=== PATIENT | female | born 1970 | race Caucasian/White ===

== ENCOUNTER 2020-07-24 04:06 | Outpatient (CLI) | payer OTHER, SELFPAY ==
[2020-07-24 19:05] LABS: SARS-CoV-2 RNA PCR Negative
== END 2020-07-24 04:07 | disposition home or self-care (01) ==
LOC: ANHCOVIDDT 04:06
PROVIDERS: PCP Internal Medicine; Visit Provider Internal Medicine Gastroenterology
DX: Z01.812 Encounter for preprocedural laboratory examination (principal); Z20.828 Contact with and (suspected) exposure to other viral communicable diseases
CPT/HCPCS: 87635; C9803; U0003

== ENCOUNTER 2020-07-26 02:19 | Day surgery (SDC) | payer OTHER, SELFPAY ==
[2020-07-18 15:59] VITALS: BMI 33.3
[2020-07-26 12:37] VITALS: BP 140/79; PULSE 87; RESP 18; TEMP 37.1; O2SAT 99; BMI 34.4
--- NOTE | 2020-07-26 12:48 | WPDANESEPPF ---
Anes - Initial Pre Proc Eval Procedure: Operation Date: 07/26/20 13:45 Proposed Procedures p Esophagogastroduodenoscopy&Screen Colon - Chava Lamb MD Date/Time: 07/26/20 12:48 Surgeon: Chava Lmab MD Pre Op Diagnosis: Epigastric Pain, Neoplasm Screening Patient Data Age: 49 Gender: F Height: 1.55 m Weight: 82.7 kg Last Vital Signs Temp 37.1 C 07/26/20 12:37 Pulse 87 07/26/20 12:37 Resp 18 07/26/20 12:37 BP 140/79 07/26/20 12:37 Pulse Ox 99 07/26/20 12:37 Allergies Allergy/AdvReac Type Severity Reaction Status Date / Time hydrocodone Allergy Severe Itching Verified 07/26/20 12:35 Penicillins AdvReac Intermediate Vomiting Verified 07/26/20 12:35 Home Medications Medication Instructions Recorded Confirmed Type flu vac [id number] 36mos up(PF) mcg IM 06/20/20 History gabapentin 300 mg capsule 300 mg PO DAILY 06/20/20 07/18/20 History meloxicam 15 mg tablet 15 mg PO DAILY PRN 06/20/20 07/18/20 History oxybutynin chloride 5 mg tablet 10 mg PO HS 06/20/20 07/18/20 History peg 3350-electrolytes 236 240 ml PO Q10M #4000 ml 07/05/20 Rx gram-22.74 gram-6.74 gram-5.86 gram solution melatonin 20 mg PO HS 07/18/20 History omeprazole 20 mg PO HS 07/18/20 07/18/20 History Patient hx anesthesia problems: none Family hx anesthesia problems: none PMFSH Past Medical History Medical History (Updated 06/21/20 @ 15:46 by Chava Lamb MD) Alternating constipation and diarrhea Cancer of skin Dyspepsia Family history of colon cancer in mother Nausea Rectal bleeding Surgical History Surgical History History of appendectomy Family History Family History Mother Carcinoma of colon Hypertension Diabetes mellitus Social History Social History Smoking status: Never smoker Alcohol intake: never Substance use: never Substance use type: does not use Living arrangements: with family Spiritual care concerns: No Anes - Eval Final PreProcedure Day of Procedure 07/26/20 12:48 Patient weight: obese Heart: regular rate and rhythm Lungs: clear to auscultation and normal air movement Airway: Mallampati scale class II Neurological: alert and oriented Last oral intake: >/= 8 hours ASA classification: II Emergent: no Anesthetic plan: proceed Anesthesia type and monitoring: general GIVS Informed Consent: The patient's anesthetic plan and its attendant risks and benefits were discussed with the patient/family/POA. Questions were solicited and answers provided to the satisfaction of the patient/family/POA.
[2020-07-26] MEDS: LACTATED RINGERS 1,000 ML 150 ML IV CONT (12:50)
--- NOTE | 2020-07-26 13:58 | PM.HPGS ---
History of Present Illness History of Present Illness Consent: Risks, benefits, and alternatives have been discussed and questions answered. Patient agrees to proceed with procedure. Chief complaint: Epigastric Pain, Neoplasm Screening Narrative: Kelsi Dugan is a 49 year old female with change bowel habits, nausea after cholecystectomy few years ago. Review of Systems Constitutional: Constitutional: Denies headache(s) and Denies weakness Eyes: Eyes: Denies blurry vision ENT: Reports Normal hearing present, Denies headache(s) and Denies neck pain Cardiovascular: Cardiovascular: Denies chest pain and Denies dyspnea Respiratory: Respiratory: Denies dyspnea Gastrointestinal: Gastrointestinal: Reports no additional gastrointestinal complaints Genitourinary: Genitourinary: Denies dysuria Musculoskeletal: Musculoskeletal: Denies neck pain Integumentary/Breasts: Skin/Breast: Denies dry skin Neurologic: Reports Normal hearing present, Denies headache(s) and Denies weakness Psychiatric: Psychiatric: Denies anxiety Endocrine: Endocrine: Denies change in body appearance Hematologic/Lymphatic: Hematologic/Lymphatic: Denies easy bleeding Allergic/Immunologic: Allergic/Immunologic: Denies urticaria PMF Past Medical History Medical History (Updated 06/21/20 @ 15:46 by Chava Lamb MD) Alternating constipation and diarrhea Cancer of skin Dyspepsia Family history of colon cancer in mother Nausea Rectal bleeding Surgical History Surgical History History of appendectomy Family History Family History Mother Carcinoma of colon Hypertension Diabetes mellitus Social History Social History Smoking status: Never smoker Alcohol intake: never Substance use: never Substance use type: does not use Living arrangements: with family Spiritual care concerns: No Meds Home Medications and Allergies Home Medications Medication Instructions Recorded Confirmed Type flu vac [id number] 36mos up(PF) mcg IM 06/20/20 History gabapentin 300 mg capsule 300 mg PO DAILY 06/20/20 07/18/20 History meloxicam 15 mg tablet 15 mg PO DAILY PRN 06/20/20 07/18/20 History oxybutynin chloride 5 mg tablet 10 mg PO HS 06/20/20 07/18/20 History peg 3350-electrolytes 236 240 ml PO Q10M #4000 ml 07/05/20 Rx gram-22.74 gram-6.74 gram-5.86 gram solution melatonin 20 mg PO HS 07/18/20 History omeprazole 20 mg PO HS 07/18/20 07/18/20 History Allergies Allergy/AdvReac Type Severity Reaction Status Date / Time hydrocodone Allergy Severe Itching Verified 07/26/20 12:35 Penicillins AdvReac Intermediate Vomiting Verified 07/26/20 12:35 Vital Signs Vital Signs - 24 hr 07/26/20 12:37 Temperature 98.7 F Pulse Rate 87 Respiratory Rate 18 Blood Pressure 140/79 Pulse Oximetry 99 Exam Const: General: comfortable and no acute distress HENMT: General nose exam: Normal nares present Eyes: General: appearance normal, both eyes and all related structures Neck: Neck: no JVD Resp: Auscultation: clear to auscultation bilaterally Cardio: Rate: regular rate Rhythm: regular rhythm GI: Inspection: non-distended GI Palp: Yes Soft to palpation Skin: General skin exam: normal color Neuro: General: gait normal Speech: normal speech Extrem: General: normal to inspection Psych: Mental Status: mental status grossly normal Assessment and Plan Assessment and plan (1) Rectal bleeding: Code(s): K62.5 - Hemorrhage of anus and rectum Status: Acute Assessment and Plan: will proceed with colonoscopy (2) Nausea: Code(s): R11.0 - Nausea Status: Acute Assessment and Plan: egd with bx
[2020-07-26 14:36] VITALS: BP 85/48; PULSE 81; RESP 17; O2SAT 93
[2020-07-26 14:46] VITALS: BP 99/51; PULSE 84; RESP 15; O2SAT 100
[2020-07-26 14:56] VITALS: BP 118/66; PULSE 82; RESP 18; O2SAT 100
[2020-07-26 15:06] VITALS: BP 106/56; PULSE 77; RESP 22; O2SAT 97
[2020-07-26 15:11] VITALS: BP 111/60; PULSE 71; RESP 18; O2SAT 98
== END 2020-07-26 15:24 | disposition home or self-care (01) ==
PROVIDERS: PCP Internal Medicine; Visit Provider Internal Medicine Gastroenterology
PROC: 0DJ08ZZ Inspection of Upper Intestinal Tract, Via Natural or Artificial Opening Endoscopic (ICD-10-PCS; CPT 43235; principal; 2020-07-26 13:45)
DX: R19.4 Change in bowel habit (principal); K62.5 Hemorrhage of anus and rectum; K29.50 Unspecified chronic gastritis without bleeding; K57.30 Diverticulosis of large intestine without perforation or abscess without bleeding; K64.8 Other hemorrhoids; Z80.0 Family history of malignant neoplasm of digestive organs; Z90.49 Acquired absence of other specified parts of digestive tract
CPT/HCPCS: 45380; 43239; 88305; J2704; J7120

== ENCOUNTER 2023-11-24 00:33 | Day surgery (SDC) | payer OTHER, SELFPAY ==
--- NOTE | 2023-11-23 13:57 | PC.NURSE ---
Report to the Outpatient Waiting Room, entrance under the green pavilion located off [facility], at time _0830_ on date __11/24/22_. Planned Procedure Time: _1030_. Time changes happen often and if your time is changed the preop area will call you the afternoon before. - You and your visitor will be asked to self-screen and do not enter if you have any COVID symptoms. - A mask is optional within the hospital at this time. Patients may have clear liquids (water, carbonated beverages, clear teas, apple juice) until 3 hours prior to surgery with a maximum of 20 ounces. - No food from midnight until time of surgery, including gum, mints and candies - Infants may have breast milk until 4 hours before surgery, formula 6 hours prior to surgery. - Children will be allowed to drink immediately following surgery. If applicable, please bring a bottle or sippy cup to assist with drinking. Juice, water, soda, and popsicles are readily available. For infants on formula, please bring formula the day of surgery. Pacifiers are allowed. Take the following medications with a SIP of water the morning of surgery: GABAPENTIN DO NOT STOP ANY OF YOUR OTHER PRESCRIPTION MEDICATIONS PRIOR TO SURGERY ?EXCEPT THE FOLLOWING Medications to discontinue per physician NONE Date to take last dose Please no make-up, nail costa rican, hairspray, perfume, deodorant, or body powder the day of surgery. No jewelry (including any body piercings) or valuables the day of surgery, leave them at home. Please take a shower or bath the night before, or the morning of, surgery with an antibacterial soap. Wear comfortable, loose fitting clothing. Children are encouraged to wear pajamas. - Jewelry must be removed prior to entering the operating room. Rings and piercings that are not removed may be cut off. - The hospital will not accept responsibility for valuables. - Please leave all valuables, including medications, at home the day of surgery. If you are going home after surgery, a licensed bulk delivery driver must drive you home. - NO public transportation without another adult if you receive anesthesia. - We recommend that an adult stay with you for 24 hours following discharge. - We also recommend that you do not drive, make important decision, drink alcoholic beverages, or take any drugs that were not prescribed by your health care provider for at least 24 hours after your discharge time. For Pediatric surgeries, we recommend two adults accompany the child home. Follow any additional instructions given to you from your surgeon. If you or anyone in your household have experienced Covid symptoms in the past week, please notify your surgeon or the nurse liaison at the phone number below for possible testing. Telephone instructions given to _PATIENT_and asked if any additional questions and then verbalized understanding. Patient advised to call surgeon office or pre surgery nurse liaison [phone] if any additional questions.
[2023-11-23 14:06] VITALS: BMI 34.9
[2023-11-24] VITALS (13 sets, daily range): BP systolic 91–138; BP diastolic 49–95; PULSE 57–87; RESP 10–20; TEMP 36.2–36.4; O2SAT 65–100
--- NOTE | ~2023-11-24 | US_ITS ---
EXAMINATION: US venous doppler [facility] DATE: 11/24/2023 15:00 INDICATION: Bilateral lower limb pain TECHNIQUE: Power scale images without and with compression and Doppler images of the bilateral lower e xtremity veins were obtained. COMPARISON: None FINDINGS: The right common femoral vein, profunda femoral vein, femoral vein, popliteal vein, peroneal trunk, p osterior tibial veins, and greater saphenous vein are patent. The left common femoral vein, profunda femoral vein, femoral vein, popliteal vein, peroneal trunk, po sterior tibial veins, and greater saphenous vein are patent. IMPRESSION: 1. Patent bilateral lower extremity veins. No evidence of deep venous thrombosis. Reviewed, dictated and finalized at location B. ENGER AGENT IMPRESSION: 1. Patent bilateral lower extremity veins. No evidence of deep venous thrombosi s.
--- NOTE | 2023-11-24 07:11 | WPDHPUPDATE1 ---
History and Physical Update Update Date/Time: 11/24/23 07:11 History and Physical has been reviewed, including an updated exam of the patient. There are NO changes in the patient's condition. Risks, benefits, and alternatives have been discussed and questions answered. Patient agrees to proceed with procedure.
--- NOTE | 2023-11-24 09:15 | P.PNAN_ITS ---
Anes - Initial Pre Proc Eval Procedure: Operation Date: 11/24/23 10:30 Proposed Procedures p Excision of Draining Left Abdominal Wound with Removal Foreign Material - Yusef Sorenson MD Date/Time: 11/24/23 09:15 Surgeon: Yusef Sorenson MD Pre Op Diagnosis: left open abdominal wound Patient Data Age: 52 Gender: F Height: 1.55 m Weight: 84 kg Last Vital Signs Temp 36.4 C 11/24/23 08:45 Pulse 79 11/24/23 08:45 Resp 18 11/24/23 08:45 BP 138/77 11/24/23 08:45 Pulse Ox 98 11/24/23 08:45 O2 Del Method Room Air 11/24/23 08:45 Allergies Allergy/AdvReac Type Severity Reaction Status Date / Time hydrocodone Allergy Severe Itching Verified 11/24/23 08:35 Penicillins AdvReac Intermediate Vomiting Verified 11/24/23 08:35 Home Medications Medication Instructions Recorded Confirmed Type gabapentin 300 mg capsule 300 mg PO DAILY 06/20/20 11/24/23 History oxybutynin chloride 5 mg tablet 10 mg PO HS 06/20/20 11/24/23 History melatonin 10 mg tablet 20 mg PO HS 07/18/20 11/24/23 History omeprazole 20 mg capsule,delayed 20 mg PO HS 07/18/20 11/24/23 History release Patient hx anesthesia problems: post op nausea/vomiting Family hx anesthesia problems: none Results Review: All pre-operative results and documents have been reviewed as part of the pre- operative evaluation. [facility] Past Medical History Medical History Alternating constipation and diarrhea Cancer of skin Dyspepsia Family history of colon cancer in mother Nausea Rectal bleeding Surgical History Surgical History History of appendectomy Family History Family History Mother Carcinoma of colon Hypertension Diabetes mellitus Social History Social History Smoking status: Never smoker Alcohol intake: never Substance use: never Substance use type: does not use Living arrangements: alone Spiritual care concerns: No Anes - Eval Final PreProcedure Day of Procedure 11/24/23 09:15 Patient weight: obese Heart: regular rate and rhythm Lungs: clear to auscultation Airway: Mallampati scale class II Neurological: alert and oriented Last oral intake: >/= 8 hours ASA classification: II Emergent: no Anesthetic plan: proceed Anesthesia type and monitoring: general LMA and standard monitoring Results Review: All pre-operative results and documents have been reviewed as part of the pre- operative evaluation. Informed Consent: The patient's anesthetic plan and its attendant risks and benefits were discussed with the patient/family/POA. Questions were solicited and answers provided to the satisfaction of the patient/family/POA.
[2023-11-24] MEDS: LACTATED RINGERS 1,000 ML 30 ML IV CONT (09:17)
[2023-11-24] MEDS: SCOPOLAMINE 1 MG PATCH 1 PATCH TRANSDERM (09:19)
[2023-11-24] MEDS: LIDO 1%/EPINEPHRINE 1:100,000 50 ML VIAL 10 ML INFILTRATE (10:33)
--- NOTE | 2023-11-24 10:43 | SUR.OPER ---
Routine cultures, aerobic, anaerobic and gram stain sent with EBONY Posada and received in pathology by Marleni
[2023-11-24] MEDS: BACITRACIN OINTMENT 15 GM TUBE 1 APPLIC TOPICAL (11:06)
[2023-11-24] MEDS: fentaNYL CITRATE INJ (*CRX) 100 MCG/2 ML VIAL 25 MCG IV PUSH ×4 (11:38→11:51)
--- NOTE | 2023-11-24 11:41 | P.OP_ITS ---
Procedure Note - Detailed Date of Procedure 11/24/23 Pre-op Diagnosis left open abdominal wound Post-op Diagnosis Other (chronic draining lower abdominal wound.) Procedure Performed 12 cm excision of chronic left lower abdominal wound with 16 cm complex repair. Surgeon Yusef Sorenson MD Multi Site Leasing Consultant navjot Anesthesia General Indications two year inflamed abdominal scar wound. Findings Small areas of chronically inflamed subcutaneous fat. No foreign material. Description of Procedure The area of concern was marked on the patient's abdomen with her consent in the holding area. 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 There was not adjacent tenderness along the upper margin of this wound. She was taken to the operating room where she was placed supine the operating table. She was given general anesthesia. The abdomen was prepped and draped usual fashion. A time-out was held and confirmed. The site was carefully examined we were not able to express any fluid from this wound. There was less erythema today than yesterday. She has been on 2 days of oral Bactrim. She confirmed today that she has not been using Neosporin on this wound The margins of the wound were infiltrated with 1% lidocaine with epinephrine. With a 15 blade the scarred area was excised this tissue was not sent for pathology. We examined the piece by splitting it down the middle and examining the scar hoping to find retained foreign material and did not locate any. I did not see granulation tissue within the scar. The scar was thick and white. There was no friability in this tissue. Examining the subcutaneous fat and the same area on the trunk I did find a couple of areas that appeared to show small areas self chronic granulation. We took those out and cultured down but did not send them to pathology either. The underlying fat appeared to be normal with exception of scarring or weakness of the superficial fascia as would be expected. I did incise in the same area through the subcutaneous fat but not as far as the deep fascia. This was in the hope of uncovering a source of this chronic inflammation. I did not see anything that might be a deeper inflammatory source. We proceeded to close this wound with 3-0 Monocryl sutures to approximate the superficial fascia. Interrupted 3-0 Monocryl was placed in the dermis as well and the skin was closed with a running 5 0 nylon. Excised skin in this area was approximately 1-1/2 cm vertically and 12 cm in length. Estimated Blood Loss 15 Drains No Packing No Pathology Yes (culture for aerobes and anaerobes.) Complications No immediate complications Condition Stable Disposition PACU
[2023-11-24] MEDS: oxyCODONE HCL (*CRX) 5 MG TAB IR PO (12:23)
--- NOTE | 2023-11-24 13:21 | SUR.PHASEII ---
1300 - dr. madsen called and aware of pt's c/o significant phylicia calf pain. heriberto hose off and will monitor 1320 - dr. madsen called and informed of pt's c/o continued pain to phylicia calves. order received.
--- NOTE | 2023-11-24 13:48 | SUR.PHASEII ---
1340 - ultrasound at bedside
--- NOTE | 2023-11-24 15:23 | SUR.PHASEII ---
1515 - venous doppler results noted. dr. madsen's office called. pt to be discharged home
== END 2023-11-24 15:29 | disposition home or self-care (01) ==
PROVIDERS: PCP Internal Medicine; Visit Provider Plastic Surgery
PROC: (CPT 11406; principal; 2023-11-24 10:30)
DX: S31.104A Unspecified open wound of abdominal wall, left lower quadrant without penetration into peritoneal cavity, initial encounter (principal); T81.89XA Other complications of procedures, not elsewhere classified, initial encounter; M79.662 Pain in left lower leg; M79.661 Pain in right lower leg
CPT/HCPCS: 11406; 13101; 13102 ×2; 87070; 87075; 87181; 87205; 93970; A9270; J0330; J2250; J2405; J2704; J3010; J7120

== ENCOUNTER 2025-01-09 00:11 | Day surgery (SDC) | payer OTHER, SELFPAY ==
[2025-01-05 13:20] VITALS: BMI 29.2
--- OUTSIDE RECORDS SUMMARY | 2025-01-09 00:14 | XMS_ITS | Clinical Summary ---
Author Organization [facility] Address [address] [place] [address] Care Team Providers Care Stock Dealer Name Role Phone Dahlia Jiménez MD Primary Care Provider [phone] Allergies Active Allergy Reactions Criticality Noted Date Comments Hydrocodone Itching 10/26/2018 Penicillin V Vomiting 08/31/2017 Medications oxybutynin 5 MG tablet 2 (two) times daily. 08/23/2017 Active doxylamine (UNISOM) 25 MG tablet Take 25 mg by mouth nightly as needed for Sleep. Active omeprazole 20 MG capsule Take 20 mg by mouth daily. Active gabapentin 300 MG capsule Take by mouth 3 (three) times a day. Active Active Problems Problem Noted Date Diagnosed Date Chronic low back pain withou t sciatica, unspecified back pain laterality 08/30/2018 Other intervertebral disc degeneration, lumbar r egion 08/30/2018 Lumbar disc herniation 08/30/2018 Spinal stenosis of lumbar re gion, unspecified whether neurogenic claudication present 08/30/2018 Lumbar foraminal stenosis 08/30/2018 Lumbar facet arthropathy 03/22/2018 Lumbar radiculopathy 09/24/2017 Family History Medical History Relation Comments Cancer Mother Relation Status Comments Mother Social History Tobacco Use Types Packs/Day Years Used Date Smoking Tobacco: Never Smokeless Tobacco: Never Alcohol Use Standard Drinks/Week Comments No 0 (1 standard drink = 0.6 oz pur e alcohol) Comments No Sex and Gender Information Value Date Recorded Sex Assigned at Not on file Legal Sex Female 1:58 PM CDT Gender Identity Not on file Sexual Orientation Not on file Occupation Industry Job Start Date Job End Date Not on file Not on file Not on file Not on file Last Filed Vital Signs Vital Sign Reading Time Taken Comments Blood Pressure 120/80 11/21/2018 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 Pulse 68 11/21/2018 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 Temperature 36.8 C (98.3 F) 04/05/2018 1:43 PM CDT Respiratory Rate 18 10/26/2018 8:17 AM MATHEMATICS PROFESSOR Oxygen Saturation 93% 10/26/2018 8:17 AM MATHEMATICS PROFESSOR Inhaled Oxygen Concentration - - Weight 73.9 kg (163 lb) 11/21/2018 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 Height 154.9 cm (5' 1 ) 11/21/2018 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 Body Mass Index 30.8 11/21/2018 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 Plan of Treatment Health Maintenance Due Date Last Done Comments Cervical Cancer Screening Pa p Smear (Age 30 to 64) Every 3 Years 1968 Colorectal Cancer Screening Colonoscopy (10 Years) 1968 Annual Physical 12/25/1971 Hepatitis C 1986 Hepatitis B Vaccines (1 of 3 - 19+ 3-dose series) 12/25/1987 Cervical Cancer Screening Pa p with HPV Testing (Age 30 to 64) Every 5 Years 1998 Cervical Cancer Screening with HPV 1998 Mammogram Screening 2008 Zoster Vaccines (1 of 2) 2018 COVID-19 Vaccine ( - 2023-2 5 season) 2024 DTaP, Tdap and Td Vaccines ( 2 - Td or Tdap) 02/22/2028 02/21/2018 Meningococcal B Vaccine Aged Out No l onger eligible based on patient's age to complete this topic Meningococcal Vaccine Aged Out No hialry hector eligible based on patient's age to complete this topic Pneumococcal Vaccine: Pediat rics (0 to 5 Years) and At-Risk Patients (6 to 64 Years) Aged Out No longer eligi ble based on patient's age to complete this topic RSV Immunizations Under 20 Months Aged Out No longer eligible based on patient's age to complete this topic Insurance [place] Care Teams Stock Dealer Relationship Specialty Start Date End Date Dahlia Jiménez MD [address] [place] [address] PCP - General INTERNAL MEDICINE 08/31/17
--- OUTSIDE RECORDS SUMMARY | 2025-01-09 00:14 | XMS_ITS | Data Portability ---
Author Organization [facility] Denis Arnett Address [address] [place] [address] Care Team Providers Care Barge Captain Name Role Phone IZABEL VELAZQUEZ Cage Shift Manager JOSEFA MEHTA Primary Care Provider Assessment Encounter Date Assessment Date Assessment LastModified by Organization Details LastModified Time 06/30/2024 06/30/2024 b/l medial heel sutures removed without incidence [email or web address] Not available 06/30/2024 15:05:34 07/18/2024 07/18/2024 Pepcid. Blood wo rk. GI consult she may need upper endoscopy CT scan abdomen and pelvis with contrast follow up in 1 month . We will try to track down colonoscopy report if we can not we will order colonoscopy. Omeprazole did not help try Protonix 40 mg q.a.m. Pepcid 20 mg q.p.m. consider sucralfate [email or web address] Not available 07/18/2024 23:12:56 09/07/2024 09/07/2024 Familial hypercholesterolemia Statin intolerance Dyspnea on exertion Chest pain Plan: Given intolerance to multiple classes of statins, we discussed options and after shared decision-making we will initiate Repatha pending insurance approval. She will obtain a CMP and lipid panel 4 weeks after taking her 1st dose of Repatha. Patient has recently undergone an echocardiogram at [facility] and we will request records of the same. Due to her inability to exercise on the treadmill following her orthopedic limitations with knee pain and bilateral foot surgery, reviewed options of evaluation for CAD with pharmacologic stress testing versus coronary CTA. After shared decision-making we will obtain coronary CT angiography to assess for obstructive CAD accounting for symptoms and quantify coronary calcium score as a risk stratification tool. ER precautions in case of recurrence of symptoms discussed. We will request a routine follow-up in 2 months' time with the results of the above-mentioned cardiac testing. Thank you for involving us in the care of your patient. [email or web address] Not available 09/07/2024 16:09:09 10/24/2024 10/24/2024 nausea constipat ion abdominal pain weight loss severe dyslipidemia still working with GI she is also seeing her manager money for chronic foot pain and getting pain medications from that clinician. I will see her back in 4 months we will continue current therapy for now. Consider CT chest abdomen pelvis we will try to get that ordered and [email or web address] Not available 10/29/2024 18:27:56 Plan of Treatment Reminders Order Date Submit Date Provider Last Modified By Organization Details Last Modified Time Details Appointments ANY 15 2024 03:15P Arnulfo Mehta MD Not available Not available Not available Lab lipid panel, serum 2023 025 [facility] (Lab), [address] [place], [address], 10/05/2024 10:18:40 CMP, serum or plasma 2023 025 SELINA Gonzalez, [address], [place], [address], 10/05/2024 03:05:22 urinalysi s, dipstick, reflex micro 2023 024 SELINA Gonzalez, [address], [place], [address], 07/19/2024 10:15:47 CBC w/ auto diff 2023 024 SELINA Gonzalez, [address], [place], [address], 07/19/2024 10:15:53 CMP, serum or plasma 2023 024 SELINA Gonzalez, [address], [place], [address], 07/19/2024 10:15:51 lipid panel, serum 2023 [facility], [address], [place], [address], 07/19/2024 10:15:50 Referral gastroent erologist referral - Please call pt to schedule an office visit. 2023 bo darby MD, [address], [address], [place], [address], 07/24/2024 15:06:13 physical therapist referral 2023 [facility], [address] [place], [address], 06/30/2024 16:19:34 Procedures None recorded. Surgeries None recorded. Imaging CT, angiogram , coronary arteries, w/ contrast 2023 [facility], [address] [place], [address], 12/12/2024 10:43:31 CT, abdomen + pelvis, w/ contrast 2023 024 [facility] ([facility]), [address] [place], [address], 10/24/2024 16:16:06 Medication Orders Repatha SureClick 140 mg/mL subcutane ous pen injector 2023 024 [facility], [address] [place], [address], 09/07/2024 16:01:30 Bactrim DS 800 mg-160 mg tablet 2023 024 [facility], [address] [place], [address], 07/18/2024 15:51:49 Percocet 5 mg-325 mg tablet 2023 024 [facility], [address] [place] [address], [address], 07/02/2024 08:34:03 Percocet 5 mg-325 mg tablet 2023 024 [facility] [address] [place] [address], [address], 06/22/2024 16:47:44 Patient TargetsNo targets recorded. Patient Instructions Encounter Date Encounter Id Patient Instructions Last Modified By Organization Details Last Modified Time 06/22/2024 [id number] toenail fungus: care instructions arry Not available 07/02/2024 08:27:18 athlete's foot: care instructions fharry Not available 07/02/2024 08:27:18 acute pain after surgery: care instructions [email or web address] Not available 06/22/2024 16:47:36 06/30/2024 [id number] toenail fungus: care instructions fharry Not available 07/02/2024 08:32:58 plantar fasciitis: care instructions fharry Not available 06/30/2024 15:05:02 acute pain after surgery: care instructions fharry Not available 07/02/2024 08:32:58 07/18/2024 [id number] A healthy lifestyle: care instructions [email or web address] Not available 07/18/2024 20:51:37 10/24/2024 [id number] A healthy lifestyle: care instructions [email or web address] Not available 10/24/2024 21:15:03 Reason for Referral Physical Therapist Referral for Plantar fascial fibromatosis Referring Physician: [facility], Encounter Date: 06/30/2024 Conveyor Installer Referral for Abnormal weight loss Please call pt to schedule an office visit. Referring Physician: Josefa Mehta, Internal Medicine, Encounter Date: 07/18/2024 Results Created Date Observation Date Name Description Value Unit Range Abnormal Flag Note LastModifiedBy Organization Detail LastModifiedTime 07/18/2007/19/2024 MICRO SCOPI C EXAMI NATIO N WBC 6-10 /hpf 0-5 abnormal Not Available [facility] ([facility]) [address] [facility], [place], [address], 07/19/2024 10:15:46 07/18/20 24 07/19/2024 MICRO SCOPI C EXAMI NATIO N RBC 0-2 /hpf 0-2 Not Available [facility] ([facility]) [address] [facility], [place], [address], 07/19/2024 10:15:46 07/18/2007/19/2024 MICRO SCOPI C EXAMI NATIO N epithelial cells (non renal) 0-10 /hpf 0-10 Not Available [facility] ([facility]) [address] [facility], [place], [address], 07/19/2024 10:15:46 07/18/2007/19/2024 MICRO SCOPI C EXAMI NATIO N casts None seen /lpf nonese en Not Available [facility] ([facility]) [address] [facility], [place], [address], 07/19/2024 10:15:46 07/18/20 24 07/19/2024 MICRO SCOPI C EXAMI NATIO N bacteria Modera te nonese en/few abnormal Not Available [facility] ([facility]) [address] [facility], [place], [address], 07/19/2024 10:15:46 07/18/2007/19/2024 URINA LYSIS , ROUTI NE W/RFX specific gravity 1.018 1.005- 1.030 Not Available [facility] ([facility]) [address] [facility], [place], [address], 07/19/2024 10:15:47 07/18/2007/19/2024 URINA LYSIS , ROUTI NE W/RFX pH 5.5 5.0-7. 5 Not Available [facility] ([facility]) [address] [facility], [place], [address], 07/19/2024 10:15:47 07/18/2007/19/2024 URINA LYSIS , ROUTI NE W/RFX urine-color YELLOW yellow Not Available [facility] ([facility]) [address] [facility], [place], [address], 07/19/2024 10:15:47 07/18/2007/19/2024 URINA LYSIS , ROUTI NE W/RFX appearance CLEAR clear Not Available [facility] ([facility]) [address] [facility], [place], [address], 07/19/2024 10:15:47 07/18/2007/19/2024 URINA LYSIS , ROUTI NE W/RFX WBC esterase 2+ negati ve abnormal Not Available [facility] ([facility]) [address] [facility], [place], [address], 07/19/2024 10:15:47 07/18/2007/19/2024 URINA LYSIS , ROUTI NE W/RFX protein NEGATI VE negati ve/tra ce Not Available [facility] ([facility]) [address] [facility], [place], [address], 07/19/2024 10:15:47 07/18/2007/19/2024 URINA LYSIS , ROUTI NE W/RFX glucose NEGATI VE negati ve Not Available [facility] ([facility]) [address] [facility], [place], [address], 07/19/2024 10:15:47 07/18/2007/19/2024 URINA LYSIS , ROUTI NE W/RFX ketones NEGATI VE negati ve Not Available [facility] ([facility]) [address] [place], [address], 07/19/2024 10:15:47 07/18/2007/19/2024 URINA LYSIS , ROUTI NE W/RFX occult blood NEGATI VE negati ve Not Available [facility] ([facility]) [address] [facility], [place], [address], 07/19/2024 10:15:47 07/18/2007/19/2024 URINA LYSIS , ROUTI NE W/RFX bilirubin NEGATI VE negati ve Not Available [facility] ([facility]) [address] [facility], [place], [address], 07/19/2024 10:15:47 07/18/2007/19/2024 URINA LYSIS , ROUTI NE W/RFX urobilinogen ,semi-qn 0.2 mg/dL 0.2-1. 0 Not Available [facility] ([facility]) [address] [place], [address], 07/19/2024 10:15:47 07/18/2007/19/2024 URINA LYSIS , ROUTI NE W/RFX nitrite, urine NEGATI VE negati ve Not Available [facility] ([facility]) [address] [place], [address], 07/19/2024 10:15:47 07/18/2007/19/2024 URINA LYSIS , ROUTI NE W/RFX microscopic examination SEE BELOW: Micro scopi c was indic ated and was perfo rmed. Not Available [facility] ([facility]) [address] [place], [address], 07/19/2024 10:15:47 07/18/2007/19/2024 LIPID PANEL cholesterol, total 302 mg/dL 100-19 9 above high normal Not Available [facility] ([facility]) [address] [place], [address], 07/19/2024 10:15:50 07/18/2007/19/2024 LIPID PANEL triglyceride s 146 mg/dL 0-149 Not Available [facility] ([facility]) [address] [place], [address], 07/19/2024 10:15:50 07/18/20 24 07/19/2024 LIPID PANEL HDL cholesterol 48 mg/dL >39 Not Available [facility] ([facility]) [address] [place], [address], 07/19/2024 10:15:50 07/18/20 24 07/19/2024 LIPID PANEL VLDL cholesterol derek 27 mg/dL 5-40 Not Available [facility] ([facility]) [address] [place], [address], 07/19/2024 10:15:50 07/18/20 24 07/19/2024 LIPID PANEL LDL chol calc ([facility]) 227 mg/dL 0-99 above high normal Not Available [facility] ([facility]) [address] [place], [address], 07/19/2024 10:15:50 07/18/2007/19/2024 LIPID PANEL LDL calc comment: COMMEN T Consi dana evalu ating for Famil ial Hyper jose stero lemia (FH), if clini eugenio indic ated. Not Available [facility] ([facility]) [address] [place], [address], 07/19/2024 10:15:50 07/18/20 24 07/19/2024 COMP. METAB OLIC PANEL (14) glucose 88 mg/dL 70-99 Not Available [facility] ([facility]) [address] [place], [address], 07/19/2024 10:15:51 07/18/20 24 07/19/2024 COMP. METAB OLIC PANEL (14) BUN 11 mg/dL 6-24 Not Available [facility] ([facility]) [address] [place], [address], 07/19/2024 10:15:51 07/18/20 24 07/19/2024 COMP. METAB OLIC PANEL (14) creatinine 1.02 mg/dL 0.57-1 .00 above high normal Not Available [facility] ([facility]) [address] [facility], [place], [address], 07/19/2024 10:15:51 07/18/2007/19/2024 COMP. METAB OLIC PANEL (14) eGFR 65 mL/mi n/1.7 3 >59 Not Available [facility] ([facility]) [address] [facility], [place], [address], 07/19/2024 10:15:51 07/18/2007/19/2024 COMP. METAB OLIC PANEL (14) BUN/creatini ne ratio 11 9-23 Not Available [facility] ([facility]) [address] [facility], [place], [address], 07/19/2024 10:15:51 07/18/20 24 07/19/2024 COMP. METAB OLIC PANEL (14) sodium 141 mmol/ L 134-14 4 Not Available [facility] ([facility]) [address] [facility], [place], [address], 07/19/2024 10:15:51 07/18/2007/19/2024 COMP. METAB OLIC PANEL (14) potassium 4.4 mmol/ L 3.5-5. 2 Not Available [facility] ([facility]) [address] [place], [address], 07/19/2024 10:15:51 07/18/2007/19/2024 COMP. METAB OLIC PANEL (14) chloride 100 mmol/ L 96-106 Not Available [facility] ([facility]) [address] [place], [address], 07/19/2024 10:15:51 07/18/20 07/19/2024 COMP. METAB OLIC PANEL (14) carbon dioxide, total 26 mmol/ L 20-29 Not Available [facility] ([facility]) [address] [facility], [place], [address], 07/19/2024 10:15:51 07/18/20 24 07/19/2024 COMP. METAB OLIC PANEL (14) calcium 9.4 mg/dL 8.7-10 .2 Not Available [facility] ([facility]) [address] [facility], [place], [address], 07/19/2024 10:15:51 07/18/2007/19/2024 COMP. METAB OLIC PANEL (14) protein, total 7.2 g/dL 6.0-8. 5 Not Available [facility] ([facility]) [address] [facility], [place], [address], 07/19/2024 10:15:51 07/18/20 24 07/19/2024 COMP. METAB OLIC PANEL (14) albumin 4.3 g/dL 3.8-4. 9 Not Available [facility] ([facility]) [address] [facility], [place], [address], 07/19/2024 10:15:51 07/18/20 24 07/19/2024 COMP. METAB OLIC PANEL (14) globulin, total 2.9 g/dL 1.5-4. 5 Not Available [facility] ([facility]) [address] [facility], [place], [address], 07/19/2024 10:15:51 07/18/20 24 07/19/2024 COMP. METAB OLIC PANEL (14) bilirubin, total 0.3 mg/dL 0.0-1. 2 Not Available [facility] ([facility]) [address] [facility], [place], [address], 07/19/2024 10:15:51 07/18/20 24 07/19/2024 COMP. METAB OLIC PANEL (14) alkaline phosphatase 96 IU/L 44-121 Not Available [facility] ([facility]) [address] [facility], [place], [address], 07/19/2024 10:15:51 07/18/20 24 07/19/2024 COMP. METAB OLIC PANEL (14) AST (SGOT) 26 IU/L 0-40 Not Available [facility] ([facility]) [address] [facility], [place], [address], 07/19/2024 10:15:51 07/18/20 24 07/19/2024 COMP. METAB OLIC PANEL (14) ALT (SGPT) 20 IU/L 0-32 Not Available [facility] ([facility]) [address] [facility], [place], [address], 07/19/2024 10:15:51 07/18/20 24 07/19/2024 CBC WITH DIFFE RENTI AL/PL ATELE T WBC 5.8 x10e3 /uL 3.4-10 .8 Not Available [facility] ([facility]) [address] [facility], [place], [address], 07/19/2024 10:15:52 07/18/20 24 07/19/2024 CBC WITH DIFFE RENTI AL/PL ATELE T RBC 4.97 x10e6 /uL 3.77-5 .28 Not Available [facility] ([facility]) [address] [facility], [place], [address], 07/19/2024 10:15:52 07/18/2007/19/2024 CBC WITH DIFFE RENTI AL/PL ATELE T hemoglobin 13.5 g/dL 11.1-1 5.9 Not Available [facility] ([facility]) [address] [facility], [place], [address], 07/19/2024 10:15:52 07/18/20 24 07/19/2024 CBC WITH DIFFE RENTI AL/PL ATELE T hematocrit 42.5 % 34.0-4 6.6 Not Available [facility] ([facility]) [address] [facility], [place], [address], 07/19/2024 10:15:52 07/18/20 24 07/19/2024 CBC WITH DIFFE RENTI AL/PL ATELE T MCV 86 fL 79-97 Not Available [facility] ([facility]) [address] [facility], [place], [address], 07/19/2024 10:15:52 07/18/2007/19/2024 CBC WITH DIFFE RENTI AL/PL ATELE T MCH 27.2 pg 26.6-3 3.0 Not Available [facility] ([facility]) [address] [facility], [place], [address], 07/19/2024 10:15:52 07/18/2007/19/2024 CBC WITH DIFFE RENTI AL/PL ATELE T MCHC 31.8 g/dL 31.5-3 5.7 Not Available [facility] ([facility]) [address] [facility], [place], [address], 07/19/2024 10:15:52 07/18/20 24 07/19/2024 CBC WITH DIFFE RENTI AL/PL ATELE T RDW 13.4 % 11.7-1 5.4 Not Available [facility] ([facility]) [address] [facility], [place], [address], 07/19/2024 10:15:52 07/18/20 24 07/19/2024 CBC WITH DIFFE RENTI AL/PL ATELE T platelets 271 x10e3 /uL 150-45 0 Not Available [facility] ([facility]) [address] [facility], [place], [address], 07/19/2024 10:15:52 07/18/20 24 07/19/2024 CBC WITH DIFFE RENTI AL/PL ATELE T neutrophils 44 % notest ab. Not Available [facility] ([facility]) [address] [facility], [place], [address], 07/19/2024 10:15:52 07/18/20 24 07/19/2024 CBC WITH DIFFE RENTI AL/PL ATELE T lymphs 47 % notest ab. Not Available [facility] ([facility]) [address] [facility], [place], [address], 07/19/2024 10:15:52 07/18/20 24 07/19/2024 CBC WITH DIFFE RENTI AL/PL ATELE T monocytes 8 % notest ab. Not Available [facility] ([facility]) [address] [facility], [place], [address], 07/19/2024 10:15:52 07/18/20 24 07/19/2024 CBC WITH DIFFE RENTI AL/PL ATELE T eos 1 % notest ab. Not Available [facility] ([facility]) [address] [facility], [place], [address], 07/19/2024 10:15:52 07/18/2007/19/2024 CBC WITH DIFFE RENTI AL/PL ATELE T basos 0 % notest ab. Not Available [facility] ([facility]) [address] [facility], [place], [address], 07/19/2024 10:15:52 07/18/20 24 07/19/2024 CBC WITH DIFFE RENTI AL/PL ATELE T neutrophils (absolute) 2.5 x10e3 /uL 1.4-7. 0 Not Available [facility] ([facility]) [address] [facility], [place], [address], 07/19/2024 10:15:52 07/18/20 24 07/19/2024 CBC WITH DIFFE RENTI AL/PL ATELE T lymphs (absolute) 2.7 x10e3 /uL 0.7-3. 1 Not Available [facility] ([facility]) [address] [facility], [place], [address], 07/19/2024 10:15:52 07/18/2007/19/2024 CBC WITH DIFFE RENTI AL/PL ATELE T monocytes(ab solute) 0.5 x10e3 /uL 0.1-0. 9 Not Available [facility] ([facility]) [address] [facility], [place], [address], 07/19/2024 10:15:52 07/18/20 24 07/19/2024 CBC WITH DIFFE RENTI AL/PL ATELE T eos (absolute) 0.0 x10e3 /uL 0.0-0. 4 Not Available [facility] ([facility]) [address] [facility], [place], [address], 07/19/2024 10:15:52 07/18/20 24 07/19/2024 CBC WITH DIFFE RENTI AL/PL ATELE T baso (absolute) 0.0 x10e3 /uL 0.0-0. 2 Not Available [facility] ([facility]) [address] [facility], [place], [address], 07/19/2024 10:15:52 07/18/20 24 07/19/2024 CBC WITH DIFFE RENTI AL/PL ATELE T immature granulocytes 0 % notest ab. Not Available [facility] ([facility]) [address] [facility], [place], [address], 07/19/2024 10:15:52 07/18/20 24 07/19/2024 CBC WITH DIFFE RENTI AL/PL ATELE T immature grans (abs) 0.0 x10e3 /uL 0.0-0. 1 Not Available [facility] ([facility]) [address] [facility], [place], [address], 07/19/2024 10:15:52 09/13/20 24 09/12/2024 MAMMO , scree reyna, digit al, bilat eral No observ ation record ed. [facility] [address] [place], [address], 09/15/2024 13:27:59 11/08/19 25 11/07/2024 CT, abdom en + pelvi s, w/ contr ast No observ ation record ed. [facility] [address] [place], [address], 11/17/2024 12:50:49 Result Notes None recorded. Problems Name Problem SNOMED Code Status Onset Date Resolution Date Notes Provider Name and Address Organization Details Recorded Time Overactive urinary bladder 438897067 Active 2023 Tracy Fairchild MA null, [place] - [facility] 4 17:21:46 Diarrhea 63585168 Active 2023 Tracy Fairchild [place], [place] [facility] 4 17:21:47 Restless legs 47733278 Active 2023 Tracy Fairchild [place], [place] [facility] 4 17:21:48 Hyperlipidemi a 87151356 Active 2023 Josefa Mehta MD Attn: Accounting ,[address] [place], [address] , [place] [facility] 4 14:59:06 Abdominal pain 92321271 Active 2023 Tracy Fairchild [place], [place] [facility] 4 16:51:32 Abnormal weight loss 317301824 Active 2023 Tracy Fairchild [place], [place] [facility] 4 16:51:34 Candidiasis 92523624 Active Not Available [facility] 3 20:15:48 Bladder muscle dysfunction - overactive Active Not Available [facility] 3 20:15:48 Urinary incontinence 636491886 Active Not Available [facility] 3 20:15:48 Cholelithiasi s without obstruction 97067366 Active Not Available [facility] 3 20:15:48 Notes:Some problems listed i n Document: #[id number] could not be added to this patient's chart. Please review this document and add these problems to the patient's chart manually as needed. Problem Notes None recorded. Procedures Surgical History Date Name Laterality Status Provider Name and Address Organization Details Recorded Time 06/30/20 24 Ulcer Debridement completed TRIPP RENNER DPM [address], [place], [address], [place] [facility] 07/02/2024 08:31:04 03/09/20 24 Injection completed ANYI DIAZ, [place], [address], [facility] - [facility] 03/09/2024 16:46:29 01/12/20 24 Injection completed ANYI DIAZ, [place], [address], [facility] - [facility] 01/12/2024 16:48:52 12/18/19 23 Endometrial Biopsy completed JIE PAYTON Attn: Accounting, [address] [place], [address], [facility] - [facility] 12/22/2022 13:02:45 12/18/19 23 Date of Last Pap Smear completed Eli Gonsalves MA [place] - [facility] 12/17/2022 15:09:40 04/03/20 22 Date of Last Mammogram completed Eli Gonsalves MA [place] - [facility] 12/17/2022 13:51:34 06/23/20 21 Routine Foot Care completed TRIPP RENNER DPM [address], [place], [address], [place] [facility] 06/23/2021 15:30:58 06/23/20 21 Injection completed ANYI DIAZ, [place], [address], [facility] - [facility] 06/23/2021 15:34:17 10/04/19 20 cholecystectomy completed GUIDO MARTIN MD Attn: Accounting, [address] [place], [address], [place] [facility] 03/16/2022 15:01:52 10/04/18 91 Caesarean Section completed Gwen Eckert MA [facility] 03/16/2016 17:20:27 10/04/18 88 Caesarean Section completed Gwen Eckert MA [facility] 03/16/2016 17:20:27 Appendectomy completed Gwen Eckert MA [facility] 03/16/2016 17:20:27 Breast Surgery completed Gwen Eckert MA [facility] 03/16/2016 17:20:37 excisional biopsy of basal cell carcinoma completed Neha De La Cruz MA [facility] 03/16/2022 14:33:48 Knee Surgery completed Neha De La Cruz MA [facility] 03/16/2022 14:34:47 procedure on stomach completed Fay Boo MA [facility] 03/16/2024 16:14:35 Tubal Ligation completed Fay Boo MA [facility] 03/16/2024 16:16:57 Joint Replacement completed Fay Boo MA [facility] 03/16/2024 16:17:13 procedure on foot completed Faby Bass rd, [place] [facility] 07/18/2024 15:49:43 Imaging Results Imaging Date Name Status [facility]Modified by [facility] Details LastModified Time 09/12/2024 MAMMO, screening, digital, bilateral completed [facility] [address] [place], [address], 09/15/2024 13:27:59 11/07/2024 CT, abdomen + pelvis, w/ contrast completed [facility] [address] [place], [address], 11/17/2024 12:50:49 Procedure Notes None recorded. Medical Equipment None Reported. Allergies Allergen ID Allergen Name Allergen Category Reaction Reaction Severity Criticality Documentation Date Start Date Code Code System Note Provider Name and Address Organization Details Recorded Time 872114 hydrocodo ne Not available itching rash severe Not available Not available 06/23/2021 5489 RxNorm Not Available Not Available Not Available 972183 atorvasta tin medicatio n other Not available Not available 07/18/2024 67512 RxNorm Not Available Not Available Not Available 090528 cholestyr amine resin medicatio n vomiting Not available high 10/24/2024 2447 RxNorm Not Available Not Available Not Available 783896 penicilli n V Not available Not available Not available Not available 10/30/2024 7984 RxNorm Other react ions and sever ities : 'Drug -urszula christie nause a and vomit ing - Sever e'. Not Available Not Available Not Available 19660 Product containin g penicilli n (product) medicatio n vomiting severe Not available 03/16/2016 05077 8001 SNOMED Not Available Not Available Not Available Medications Name Sig Start Date Stop Date Status Note LastModified by Organization Details LastModified Time cyclobenz aprine 10 mg tablet 11/12 completed Not Available Not Available Not Available nystatin 100,000 unit/mL oral suspensio n SPIT OUT OR SWALLOW AFTER SWISHING 5ML 4 TIMES DAILY FOR 7 DAYS 04/12 completed Not Available Not Available Not Available prednison e 10 mg tablet 04/12 completed Not Available Not Available Not Available doxycycli ne hyclate 100 mg capsule 11/12 completed Not Available Not Available Not Available atorvasta tin 20 mg tablet TAKE 1 TABLET BY MOUTH ONCE DAILY 07/18 completed Was told to stop medicine Not Available Not Available Not Available clindamyc in HCl 300 mg capsule TAKE 1 CAPSULE BY MOUTH EVERY 6 HOURS 09/07 completed Not Available Not Available Not Available citalopra m 40 mg tablet TAKE 1 TABLET BY MOUTH ONCE DAILY DIRECTED FOR 30 DAYS 11/14 completed Not Available Not Available Not Available trazodone 50 mg tablet TAKE 1 TABLET BY MOUTH NEEDED AT BEDTIME FOR 30 DAYS 11/12 completed Not Available Not Available Not Available azithromy matilde 250 mg tablet TAKE 2 TABLETS BY MOUTH ON DAY 1, AND THEN TAKE 1 TABLET BY MOUTH ONCE A DAY ON DAY 2 THROUGH DAY 5 01/12 completed Not Available Not Available Not Available aspirin 325 mg tablet 11/18 completed Not Available Not Available Not Available ibuprofen 800 mg tablet TAKE 1 TABLET BY MOUTH THREE TIMES DAILY WITH MEALS active Not Available Not Available No t Available ofloxacin 0.3 % eye drops 04/12 completed Not Available Not Available Not Available fluconazo le 150 mg tablet Take 1 tablet(s ) by oral route. 05/12 completed Not Available Not Available Not Available benzonata te 200 mg capsule TAKE 1 CAPSULE BY MOUTH THREE TIMES DAILY 04/12 completed Not Available Not Available Not Available tolterodi ne ER 4 mg capsule,e xtended release 24 hr 1qd 03/29 completed Not Available Not Available Not Available hydrocodo ne 5 mg-acetam inophen 325 mg tablet 12/17 completed Not Available Not Available Not Available meloxicam 15 mg tablet TAKE 1 TABLET BY MOUTH ONCE DAILY 11/14 completed Not Available Not Available Not Available phenazopy ridine 200 mg tablet 04/12 completed Not Available Not Available Not Available prednison e 20 mg tablet 11/18 completed Not Available Not Available Not Available Doc-Q-Lac e 100 mg capsule 11/18 completed Not Available Not Available Not Available lidocaine 4 % topical cream APPLY ONE APPLICAT ION TOPICALL Y FOUR TIMES DAILY DIRECTED 12/17 completed Not Available Not Available Not Available clindamyc in HCl 150 mg capsule TAKE FOUR CAPSULES BY MOUTH ONE HOUR BEFORE APPOINTM ENT 12/17 completed Not Available Not Available Not Available metronida zole 500 mg tablet 04/30 completed Not Available Not Available Not Available sulfameth oxazole 800 mg-trimet hoprim 160 mg tablet TAKE 1 TABLET BY MOUTH EVERY 12 HOURS FOR 10 DAYS 07/18 completed Not Available Not Available Not Available peg-elect rolyte solution 420 gram oral solution TAKE BY MOUTH EVERY 10 MINUTES UNTIL FECAL EFFLUENT IS CLEAR DO NOT EXCEED A TOTAL VOLUME OF 4000ML 11/12 completed Not Available Not Available Not Available triamcino lone acetonide 0.1 % topical cream APPLY A THIN LAYER TO THE AFFECTED AREA(S) BY TOPICAL ROUTE 2 TIMES PER DAY 05/12 completed Not Available Not Available Not Available hydrocort isone acetate 25 mg rectal supposito ry active Not Available Not Available Not Available ketorolac 10 mg tablet 11/12 completed Not Available Not Available Not Available Kenalog 40 mg/mL suspensio n for injection Take 0.5 mL by injectio n route. 07/18 completed 0.25cc per foot Not Available Not Available Not Available meloxicam 7.5 mg tablet 05/12 completed Not Available Not Available Not Available oxycodone -acetamin ophen 5 mg-325 mg tablet Take 1 tablet every 4-6 hours by oral route for 7 days. active Not Available Not Available No t Available terbinafi ne HCl 250 mg tablet Take 1 tablet every day by oral route for 30 days. 11/14 completed Not Available Not Available Not Available alprazola m 0.5 mg tablet 11/12 completed Not Available Not Available Not Available amitripty line 25 mg tablet Take 1 tablet every day by oral route at bedtime for 30 days. 11/18 completed Not Available Not Available Not Available methocarb dunia 750 mg tablet 05/12 completed Not Available Not Available Not Available desonide 0.05 % topical ointment 04/12 completed Not Available Not Available Not Available hydrocort isone acetate 0.5 % topical cream apply bid 11/18 completed Not Available Not Available Not Available phenazopy ridine 100 mg tablet 11/18 completed Not Available Not Available Not Available doxycycli ne monohydra te 100 mg capsule TAKE 1 CAPSULE BY MOUTH EVERY 12 HOURS 04/12 completed Not Available Not Available Not Available hydrocodo ne 7.5 mg-acetam inophen 325 mg tablet 11/18 completed Not Available Not Available Not Available cephalexi n 500 mg capsule TAKE 1 CAPSULE BY MOUTH 4 TIMES DAILY 12/17 completed Not Available Not Available Not Available pantopraz ole 40 mg tablet,de layed release TAKE 1 TABLET BY MOUTH ONCE DAILY 04/12 completed Not Available Not Available Not Available nortripty line 10 mg capsule TAKE 1 CAPSULE BY MOUTH NIGHTLY active Not Available Not Available No t Available triamcino lone acetonide 0.1 % topical ointment APPLY A THIN LAYER TO THE AFFECTED AREA(S) BY TOPICAL ROUTE TWICE DAILY 04/12 completed Not Available Not Available Not Available fluocinol one 0.01 % topical body oil INSTILL 3 DROPS INTO EACH EAR TWICE DAILY 12/17 completed Not Available Not Available Not Available gabapenti n 300 mg capsule TAKE 1 CAPSULE BY MOUTH THREE TIMES DAILY active Not Available Not Available No t Available diclofena c sodium 75 mg tablet,de layed release 11/18 completed Not Available Not Available Not Available hydroxyzi ne HCl 25 mg tablet TAKE 1 TABLET BY MOUTH EVERY 6 TO 8 HOURS NEEDED FOR ITCHING active Not Available Not Available No t Available mometason e 0.1 % topical ointment APPLY TOPICALL Y TO THE LEFT SHOULDER ONCE DAILY FOR 2 WEEKS THEN EVERY OTHER DAY NEEDED 04/30 completed Not Available Not Available Not Available mupirocin 2 % topical ointment APPLY TO THE AFFECTED AREA ON ABDOMEN TWICE DAILY UNTIL WOUND IS HEALED 04/30 completed Not Available Not Available Not Available dexametha sone sodium phosphate 4 mg/mL injection solution Inject 1 mL by intramus cular route. 07/21 completed Not Available Not Available Not Available ibuprofen 600 mg tablet TAKE 1 TABLET BY MOUTH EVERY 6 HOURS NEEDED FOR PAIN 04/12 completed Not Available Not Available Not Available levofloxa matilde 500 mg tablet 05/12 completed Not Available Not Available Not Available levofloxa matilde 750 mg tablet 04/30 completed Not Available Not Available Not Available methylpre dnisolone 4 mg tablets in a dose pack TAKE BY MOUTH DIRECTED ON INSIDE OF PACKAGE 09/07 completed Not Available Not Available Not Available ketoconaz ole 2 % topical cream APPLY CREAM TOPICALL Y TO AFFECTED AREA ONCE DAILY 11/14 completed Not Available Not Available Not Available oxybutyni n chloride 5 mg tablet Take 2 tablets by mouth once daily 2024 active Not Available Not Available Not Avai lable ondansetr on 4 mg disintegr ating tablet DISSOLVE 1 TABLET IN MOUTH EVERY 8 HOURS active Not Available Not Available No t Available doxycycli ne hyclate 100 mg tablet TAKE 1 TABLET BY MOUTH TWICE DAILY FOR 14 DAYS FOR INFECTIO N OF THE SKIN AND OR SOFT TISSUE 04/30 completed Not Available Not Available Not Available naproxen 500 mg tablet 11/18 completed Not Available Not Available Not Available metoclopr amide 10 mg tablet 04/30 completed Not Available Not Available Not Available amoxicill in 875 mg-potass ium clavulana te 125 mg tablet 05/12 completed Not Available Not Available Not Available cholestyr amine (with sugar) 4 gram oral powder 11/12 completed Not Available Not Available Not Available cholestyr amine (with sugar) 4 gram powder for susp in a packet DISSOLVE & TAKE 1 POWDER BY MOUTH ONCE DAILY WITH FOOD AVOID OTHER MEDS WITHIN 1 HOUR BEFORE OR 4-6 HOURS AFTER DOSE. 10/24 completed Not Available Not Available Not Available rosuvasta tin 5 mg tablet TAKE 1 TABLET BY MOUTH ONCE DAILY 09/07 completed Not Available Not Available Not Available nitrofura ntoin monohydra te/macroc rystals 100 mg capsule 04/12 completed Not Available Not Available Not Available Prevalite 4 gram oral powder TAKE 1 SCOOP BY MOUTH EVERY DAY 07/18 completed Was told to stop medicati on Not Available Not Available Not Available omeprazol e 20 mg tablet,de layed release Take 1 tablet every day by oral route. active Not Available Not Available No t Available Caroline Allergy 180 mg tablet Take 1 tablet every day by oral route as directed for 30 days. 05/12 completed Not Available Not Available Not Available Myrbetriq 50 mg tablet,ex tended release Take 1 tablet every day by oral route. 03/29 completed Not Available Not Available Not Available Repatha SureClick 140 mg/mL subcutane ous pen injector Inject by subcutan eous route for 84 days. active Not Available Not Available No t Available Fluvirin 1383-3682 (PF) 45 mcg(15 mcg x3)/0.5 mL intramusc ular syringe 11/18 completed Not Available Not Available Not Available Afluria Quad (PF) 60 mcg (15 mcg x 4)/0.5 mL IM syringe 05/12 completed Not Available Not Available Not Available Afluria Qd (36 mos up)(PF)60 mcg (15 mcg x4)/0.5 mL IM syringe 12/17 completed Not Available Not Available Not Available Afluria Qd (36 mos up)(PF)60 mcg (15 mcg x4)/0.5 mL IM syringe 11/12 completed Not Available Not Available Not Available Vitals Date Recorded Body height Body mass index (BMI) Body weight Heart rate Body temperature Pain severity - 0-10 verbal numeric rating [Score] - Reported Systolic blood pressure Diastolic blood pressure Provider Name and Address Organization Details Last Updated DateTime 4 155.58 cm 30.7 kg/m2 77455.1 5 g 77 /min 98.6 [degF] 0 132 mm[Hg] 80 mm[Hg] Te Fountain MA [facility] 4 14:58:09 Date Recorded Body height Body mass index (BMI) Body weight Body temperature Heart rate Pain severity - 0-10 verbal numeric rating [Score] - Reported Systolic blood pressure Diastolic blood pressure Provider Name and Address Organization Details Last Updated DateTime 4 155.58 cm 30.4 kg/m2 78852.9 6 g 98.3 [degF] 66 /min 0 134 mm[Hg] 80 mm[Hg] Anaya Albert MA [facility] 4 14:26:40 Date Recorded Body height Body mass index (BMI) Body weight Heart rate Oxygen saturation Oxygen saturation in Arterial blood by Pulse oximetry Systolic blood pressure Diastolic blood pressure Provider Name and Address Organization Details Last Updated DateTime 4 155.58 cm 29.9 kg/m2 13604.0 6 g 79 /min 98 % 98 % 118 mm[Hg] 80 mm[Hg] Faby Garcia [facility] 4 15:44:53 Date Recorded Body height Body mass index (BMI) Body weight Heart rate Oxygen saturation Oxygen saturation in Arterial blood by Pulse oximetry Respiratory rate Systolic blood pressure Diastolic blood pressure Provider Name and Address Organization Details Last Updated DateTime 4 155.58 cm 29.6 kg/m2 35166.5 9 g 80 /min 100 % 100 % 18 /min 128 mm[Hg] 70 mm[Hg] Neha Goodwin LPN [facility] 4 15:46:31 Date Recorded Body height Body mass index (BMI) Body weight Heart rate Oxygen saturation Oxygen saturation in Arterial blood by Pulse oximetry Systolic blood pressure Diastolic blood pressure Provider Name and Address Organization Details Last Updated DateTime 5 155.58 cm 29.2 kg/m2 85513.9 7 g 72 /min 99 % 99 % 110 mm[Hg] 76 mm[Hg] Faby Garcia [facility] 5 15:30:23 Social History Question Answer Notes LastModified by Organizat ion Details LastModified Time Tobacco Smoking Status Never Smoker OLAF Joiner, [facility] 03/16/2016 17:21:24 Do You Have An Advance Directive? No Information not available 12/17/2022 What Is Your Level Of Alcohol Consumption? None Information not available 12/17/2022 Are You Blind Or Do You Have Difficulty Seeing? No Information not available 10/27/2023 What Is Your Level Of Caffeine Consumption? Occasional Information not available 10/27/2023 In The 14 Days Before Symptom Onset, Have You Had Close Contact With A Laboratory-confir med COVID-19 While That Case Was Ill? No Information not available 03/16/2024 In The 14 Days Before Symptom Onset, Have You Had Close Contact With A Person Who Is Under Investigation For COVID-19 While That Person Was Ill? No Information not available 03/16/2024 Have You Been To An Area Known To Be High Risk For COVID-19? No Information not available 03/16/2024 Are You Currently Employed? Yes Information not available 12/17/2022 Are You Deaf Or Do You Have Serious Difficulty Hearing? No Information not available 10/27/2023 What Type Of Diet Are You Following? REGULAR Information not available 10/27/2023 What Is The Highest Grade Or Level Of School You Have Completed Or The Highest Degree You Have Received? 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 No Information not available 03/16/2024 What Was The Date Of Your Most Recent Tobacco Screening? 10/24/2024 Information not available 10/24/2024 What Is Your Relationship Status? Information not available 12/17/2022 Do You Use Your Seat Belt Or Car Seat Routinely? Yes Information not available 10/27/2023 Are You Sexually Active? No Information not available 12/17/2022 Do You Have Smoke And Carbon Monoxide Detectors In Your Home? Yes Information not available 12/17/2022 Are You Passively Exposed To Smoke? No Information no t available 12/17/2022 Do You Feel Stressed (tense, Restless, Nervous, Or Anxious, Or Unable To Sleep At Night)? [id number] Sleeping Information not available 03/16/2024 Do You Use Any Illicit Or Recreational Drugs? No Information not available 12/17/2022 Do You Use Sunscreen Routinely? Yes Information not available 03/16/2024 Has Tobacco Cessation Counseling Been Provided? Yes Information not available 03/16/2024 On What Date Was Tobacco Cessation Counseling Provided? 10/24/2024 Information not available 10/24/2024 Do You Or Have You Ever Used Any Other Forms Of Tobacco Or Nicotine? No Information not available 12/17/2022 Sex: Female Functional Status Question Answer Note LastModified by Organizat ion Details LastModified Time Are you able to care for yourself? Yes Information not available 10/27/2023 What is your exercise level? Occasional Information not available 10/27/2023 Mental Status None recorded. Family History Relationship Description Onset Age of this Age Resolved Age Notes LastModified by Organization Details LastModified Time Mother Malignant tumor of colon [email or web address] Not available 03/16 17:46:48 Mother Diabetes mellitus [email or web address] Not available 03/16 17:46:48 Mother Hypertensive disorder [email or web address] Not available 03/16 17:46:48 Mother Osteoporosis [email or web address] Not melisa ilable 03/16/2016 17:46:48 Mother Kidney disease mebyma Not available 2023 16:16:11 Medical History Condition Response Coronary Artery Disease N Other N Atrial Fibrillation N High Blood Pressure N Depression N COPD N Blood Clots N Anxiety Disorder N Muscle, Joint, or Bone Problems Y Acid Reflux (GERD) N Cancer Y Stroke N High Cholesterol Y Liver Disease N Headaches N Kidney or Bladder Problems Y Thyroid Problems N GI Problems N Have you had a mammogram in the last yea r? N Skin Problems N Anemia N Heart Attack ([place]) N Diabetes N Seizures/Epilepsy N Have you had a colonoscopy in the last 1 0 years? N Asthma N Allergies N Have you had a PSA blood test in the las t year? N Hepatitis N Osteoporosis N Heart Failure N Gynecological History Statement/Question Response Date of Last Mammogram 04/03/2022 Date of LMP 12/04/2022 Menses Monthly N STIs/STDs N Date of Last Pap Smear 12/17/2022 Current Control Method Tubal Ligat ion LMP Definite Obstetrics History GPAL:G 2 P 2 0 0 2 Type Value Multiple Births 0 Full Term 2 Induced 0 Spontaneous 0 Premature 0 Living 2 Ectopics 0 Total 2 Immunizations Vaccine Type Date Status Note Provider Nam e and Address Organization Details Recorded Time Influenza, split virus, trivalent, PF 7 completed Faby Garcia, [facility] [place], [place] - [facility] 10/30/2024 17:19:05 Influenza, split virus, quadrivalent, preservative 9 completed Faby Garcia, [place] [facility] 10/30/2024 17:19:05 Influenza, recombinant, quadrivalent, PF 1 completed Faby Garcia, [place] [facility] 10/30/2024 17:19:05 Influenza, split virus, trivalent, PF 7 completed Faby Garcia, [place] [facility] 10/30/2024 17:19:05 Influenza, split virus, quadrivalent, PF 0 completed Faby Garcia, [place] [facility] 10/30/2024 17:19:05 Influenza, split virus, quadrivalent, PF 8 completed Faby Garcia, [facility] [facility] 10/30/2024 17:19:05 Tdap 8 completed Not Available [facility] 10/21/2019 02:41:33 MMR 8 completed Not Available [facility] 10/21/2019 02:46:09 Past Encounters Encounter ID Performer Location Encounter Start Date Encounter Closed Date Diagnosis/Indication Diagnosis SNOMED-CT Code Diagnosis ICD10 Code Diagnosis Note [id number] Dimitry Rowland ([employer]) [address] [place] [address] 03/16/2016 16:11:09 03/16/2016 18:44:09 Bladder muscle dysfunction - overactive 001174102 N32.81 Urinary incontinence 165 607876 R32 Screening for malignant neoplasm of breast 693269356 Z12.31 [id number] MD Janett Villanueva (Adult Med) [address] [place] [phone] 10/12/2016 16:34:09 10/13/2016 16:56:59 Osteoarthritis of knee 983881613 M17.0 severe, hard to jeremiah out daily routine physical activities . [id number] MD Janett Villanueva (Adult Med) [address] [place] [address] 0 03/29/2017 16:08:08 03/30/2017 10:47:47 Chondromalacia of left patella 1011391359 16305 M22.42 she will have left knee operation tomorrow , sofar no absolute medical contraindi cation to proceed the interventi on, she had succesful operation on the right knee inapril 2016. Restless legs 12188291 G 25.81 nievesll try medication amitriltyl ine for a while, hop[jennifer she can get comfortabl e sleep at night. [id number] MD Janett Villanueva (Adult Med) [address] [place] [address]53[address] 0 06/14/2017 15:56:29 06/15/2017 14:03:41 Chronic low back pain 020317869 M54.5 Protrusion of lumbar discs with cronic pain, had MRI done. Calculus o f gallbladder with cholecystitis 76648010 K80.10 [id number] OLAF Win (Adult Med) [address] [place] [address] 0 11/18/2017 16:16:58 11/22/2017 11:03:01 Administrative reason for encounter [id number] Z02.89 Z02.89, she had negative TB skin test at [facility]orship reason she can not have vaccinatio n. [id number] MD Janett Villanueva (Adult Med) [address] [place] [phone] 0 01/25/2018 16:58:55 01/31/2018 10:58:41 Active or passive immunization 767056843 Z23 She will try to obtain copy of previous vaccinatio ns. Contact dermatitis 94524 004 L25.9 Skin lesion 79250564 L98 .9 [id number] MD Janett Villanueva (Adult Med) [address] [place] [address]5911[address] 0 02/21/2018 17:29:39 02/24/2018 17:14:06 [id number] MD Janett Villanueva (Adult Med) [address] [place] [address]2893[address] 0 05/12/2019 17:36:58 05/15/2019 09:40:14 Urge incontinence of urine 23134560 N39.41 [id number] MD Janett Villanueva (Adult Med) [address] [place] [address] 74539[address] 0 04/15/2020 09:45:05 04/17/2020 12:12:40 Restless legs 82862054 G25.81 jonah try medication amitriltyl ine for a while, hop[jennifer she can get comfortabl e sleep at night. Overactive urinary bladder 956041625 N32.81 Urge incon tinence of urine 12742050 N39.41 [id number] MD Janett Villanueva (Adult Med) [address] [place] [address] [phone] 0 06/25/2020 16:22:07 06/27/2020 10:21:08 Insomnia 311630901 G47.00 Discussed with patient, she agreed to try medication as prescribed ., [id number] MD Janett Villanueva (Adult Med) [address] [place] [address] 64832[address] 0 11/12/2020 08:07:07 11/13/2020 11:23:46 History and physical examination, pre-employment 712315563 Z02.1 Had both knees operations , hard to squal down. But ambulating . without assistance .Will care for under the 13 Y/O group. [id number] MD Janett Villanueva (Adult Med) [address] [place] [address] [phone] 0 04/30/2021 16:31:55 05/05/2021 23:04:16 Onychomycosis of toenails 301653167 B35.1 She agreed for the referral. Chronic anxiety 78897639 9 F41.9 Discussed with patient, she agreed to try some thing first, if it dose not work, will go to behavioral health clinic. Harleen sanchez 0r [facility] . Urinary bl adder muscle dysfunction - underactive 228075837 N31.2 On oxybutynin . Cholelithi asis without obstruction 60067923 K80.20 Stable, so far no symptom. Urinary incontinence 165 325906 R32 Stable. [id number] TRIPP RENNER DPM [facility] [address] [place] [phone] 2 06/23/2021 14:46:19 06/26/2021 11:14:48 Tinea pedis 2331204 B35.3 Onychomycosis 867208674 B35.1 Pain in right foot 34287 96621 02119 M79.671 Pain in left foot 840296 6002 99463 M79.672 Pain of le ft ankle joint 0339737682 1528300 M25.572 Localized edema 75229264 4 R60.0 [id number] [facility] [address] [place] [address] 07/21/2021 15:07:23 08/15/2021 12:33:36 Tinea pedis 3142171 B35.3 Onychomycosis 129945887 B35.1 Pain in right foot 40054 95642 28849 M79.671 Pain in left foot 327443 8587 12356 M79.672 Pain of le ft ankle joint 9796816613 4214039 M25.572 Localized edema 71744697 4 R60.0 [id number] Dahlia Jiménez MD [facility] (Adult Med) [address] [place] [address] 11/14/2021 16:35:48 11/17/2021 12:38:55 Chronic sinusitis 31994709 J32.9 Discussed with patient, will refer to ENT and Abs as she agreed. [facility] has no ENT department , will-re-pearson mmit the referral. Urinary incontinence 165 517919 R32 Stable. Over reactive bladder. Pain in finger 36718067 M79.645 Left index finger pain for years. [id number] MD Janett AMANDA ([employer]) [address] [place] [phone] 0 03/16/2022 14:25:47 03/18/2022 12:19:31 Mass of right breast 5232808251 6920136 N63.10 Chronic, worsening right breast lump in tail/axill a for many years. Last mammo 2016 Birads 1. Strong family history of breast and colon cancer.- physical exam revealed mass approx 10 o'clock, 4x4 cm- orders for both US and mammo were printed and given to patient for expediency Screening for malignant neoplasm of cervix 387724959 Z12.4 Due for pap, none documented since before 2014.- pt declines screening today, she will make appointmen t [id number] MD Janett Villanueva (Adult Med) [address] [place] [phone] 0 06/25/2022 17:20:37 06/26/2022 16:02:00 Environmental allergy 963187251 T78.49XD Stable , wants to refill med , No skin rash today, Dysfunctio n of urinary bladder 13874825 R39.89 Stable, wants to refill med. Urinary incontinence 165 654633 R32 Stable. Over reactive bladder. [id number] JIE PAYTON ([employer]) [address] [place] [phone] 0 12/03/2022 15:42:23 12/09/2022 15:10:00 Mass of left breast [id number] N63.20 US L breast 11/11/2022 with 0.23cm hypoechoic nodule in L breast smaller than previously noted (0.46cm). Discussed benign findings with patient. Recommende d annual screening mammogram April 2023. Screening for malignant neoplasm of breast 930306145 Z12.31 [id number] MD Janett Daniels ([employer]) [address] [place] [address] 12/17/2022 14:54:31 12/29/2022 10:01:30 Gynecologic examination 84475571 Z01.419 Unremarkab le pelvic exam. Last Pap around 2013, updated today Postmenopa usal bleeding 26887438 N95.0 Patient states she stopped menstruati ng >10 years ago, but experience d bleeding on 12/04 for a few days with mild cramping and clots. She denies any other symptoms. Endometria l biopsy attempted in office today, could not be completed due to pt intoleranc e. Patient referred for TVUS, will follow up with results. [id number] Shailesh Nieto MD [place] [address] [facility] [address] [place] [address] 02/02/2023 16:38:28 02/04/2023 13:08:11 Postmenopausal bleeding 08450202 N95.0 --Will perform hysterosco py, D&C, with possible polypectom y [id number] MD Janett Villanueva (Adult Med) [address] [place] [address] 04/21/2023 14:44:07 04/22/2023 15:25:13 Obesity 345106573 E66.9 BMI is 32.4 as . Advised to watch diet, exercise and keep the weight down. BMI down from 33.3 of previous visit. Skin lesion 54040497 L98 .9 One spot on the left lower abdomen wall. nerve healed up, then it bleed. Her dermatolog ist at [facility] is no longer there, new appointmen t will be in September 2023. she prefers local and sooner appointmen t. Eruption 941220008 R21 On both thighs and back. Candidiasis of mouth 797 43703 B37.0 Discussed with patient, dhe agreed to try oral solution as ordered. Elevated blood-pressure reading without diagnosis of hypertension 776110187 R03.0 Bp re-check by Dr. Jiménez, sitting. left arm. adult cuff, reading is 124/70 mm HG. Urinary incontinence 165 969868 R32 Stable. Over reactive bladder. Environmental allergy 42 5323139 T78.49XD Stable , wants to refill med , No skin rash today, [id number] MD Janett Villanueva (Adult Med) [address] [place] [address] 10/27/2023 16:45:35 10/28/2023 15:36:34 History and physical examination, pre-employment 487580690 Z02.1 Had both knees operations , hard to squal down. But ambulating . without assistance .Will care for under the 11 Y/O group. Chronic back pain 728901 002 G89.29 Under the care of pain management Pain of bi lateral knee regions 4610566608 22724 M25.561 M25.562 Had both knee operations . Open wound of anterior abdominal wall 860463402 S31.101D [facility] biopsy done not cancer, agreed to have plastic surgeon evaluation . Environmental allergy 42 7810272 T78.49XD Stable , wants to refill med , No skin rash today, Urinary incontinence 165 885460 R32 Stable. Over reactive bladder. Urge incon tinence of urine 41288314 N39.41 Med refills. Degenerati ve joint disease involving multiple joints 686109300 M15.9 [id number] [facility] [address] [address] 01/12/2024 16:11:36 01/13/2024 10:50:38 Tinea pedis 9567062 B35.3 Onychomycosis 756080980 B35.1 Pain in right foot 07787 23766 82448 M79.671 Pain in left foot 631585 2157 90422 M79.672 Pain of le ft ankle joint 4292388886 0590630 M25.572 Localized edema 40703202 4 R60.0 Plantar fasciitis 276164 003 M72.2 Our plan is to decrease pain and inflammati on, improve ambulation and to allow the patient to return to normal activities , work and half-way weight bearing, pain free and to prevent further disability Acquired s hort left Achilles tendon 8904078854 42765 M67.02 The patient was educated regarding how to mechanical ly stabilize their deformity. The patient was given education about shoe recommenda tions specific for the condition. The patient was educated about custom orthotics and how appropriat e shoes and orthotics can prevent further worsening of the deformity. The patient was educated about how bad shoe habits can worsen the condition. NSAIDS, P.T., injections and other conservati ve treatments were discussed. Both surgical and non surgical treatments were discussed, but conservati ve options were emphasized . Contractur e of right Achilles tendon 6008000696 8675645 M67.01 The patient was educated regarding how to mechanical ly stabilize their deformity. The patient was given education about shoe recommenda tions specific for the condition. The patient was educated about custom orthotics and how appropriat e shoes and orthotics can prevent further worsening of the deformity. The patient was educated about how bad shoe habits can worsen the condition. NSAIDS, P.T., injections and other conservati ve treatments were discussed. Both surgical and non surgical treatments were discussed, but conservati ve options were emphasized . [id number] [facility] [address] [place] [address] 03/09/2024 13:42:59 03/20/2024 08:22:13 Tinea pedis 7737271 B35.3 Onychomycosis 557578717 B35.1 Pain in right foot 50678 87833 89577 M79.671 Pain in left foot 852383 4893 05655 M79.672 Pain of le ft ankle joint 4806483872 6862478 M25.572 Localized edema 85428513 4 R60.0 Plantar fasciitis 057800 003 M72.2 Our plan is to decrease pain and inflammati on, improve ambulation and to allow the patient to return to normal activities , work and intermediate designer weight bearing, pain free and to prevent further disability Acquired s hort left Achilles tendon 2386947262 55497 M67.02 The patient was educated regarding how to mechanical ly stabilize their deformity. The patient was given education about shoe recommenda tions specific for the condition. The patient was educated about custom orthotics and how appropriat e shoes and orthotics can prevent further worsening of the deformity. The patient was educated about how bad shoe habits can worsen the condition. NSAIDS, P.T., injections and other conservati ve treatments were discussed. Both surgical and non surgical treatments were discussed, but conservati ve options were emphasized . Contractur e of right Achilles tendon 9244811034 0240278 M67.01 The patient was educated regarding how to mechanical ly stabilize their deformity. The patient was given education about shoe recommenda tions specific for the condition. The patient was educated about custom orthotics and how appropriat e shoes and orthotics can prevent further worsening of the deformity. The patient was educated about how bad shoe habits can worsen the condition. NSAIDS, P.T., injections and other conservati ve treatments were discussed. Both surgical and non surgical treatments were discussed, but conservati ve options were emphasized . [id number] Josefa Mehta MD [facility] [place] [address] [place] [address] 03/16/2024 15:54:02 03/16/2024 17:26:37 Overactive urinary bladder 766946461 N32.81 Diarrhea 57182780 R19.7 Restless legs 83641742 G 25.81 Screening for cardiovascular system disease 779945515 Z13.6 Long-term drug therapy 954019539 Z79.995 [id number] Josefa Mehta MD [facility] (Adult Med) [address] [place] [address] 04/12/2024 15:56:00 04/12/2024 17:08:33 Obesity 464752458 E66.8 Hyperlipidemia 62178252 E78.5 [id number] TRIPP RENNER DPM [facility] [address] [place] [address] 04/21/2024 15:04:05 04/24/2024 08:16:44 Tinea pedis 2875828 B35.3 Onychomycosis 440997285 B35.1 Pain in right foot 99346 15686 43278 M79.671 Pain in left foot 873887 4234 64614 M79.672 Pain of le ft ankle joint 3889127888 8394963 M25.572 Localized edema 60718239 4 R60.0 Plantar fasciitis 533869 003 M72.2 Our plan is to decrease pain and inflammati on, improve ambulation and to allow the patient to return to normal activities , work and half-way weight bearing, pain free and to prevent further disability Acquired s hort left Achilles tendon 2537283477 01467 M67.02 The patient was educated regarding how to mechanical ly stabilize their deformity. The patient was given education about shoe recommenda tions specific for the condition. The patient was educated about custom orthotics and how appropriat e shoes and orthotics can prevent further worsening of the deformity. The patient was educated about how bad shoe habits can worsen the condition. NSAIDS, P.T., injections and other conservati ve treatments were discussed. Both surgical and non surgical treatments were discussed, but conservati ve options were emphasized . Contractur e of right Achilles tendon 8610267827 2303176 M67.01 The patient was educated regarding how to mechanical ly stabilize their deformity. The patient was given education about shoe recommenda tions specific for the condition. The patient was educated about custom orthotics and how appropriat e shoes and orthotics can prevent further worsening of the deformity. The patient was educated about how bad shoe habits can worsen the condition. NSAIDS, P.T., injections and other conservati ve treatments were discussed. Both surgical and non surgical treatments were discussed, but conservati ve options were emphasized . [id number] Josefa Mehta MD Janett (Adult Med) [address] [place] [address] 05/03/2024 16:28:52 05/03/2024 17:15:17 Dyslipidemia 782269295 E78.5 Pre-surger y evaluation 224186218 Z01.818 Urinary incontinence 165 384178 R32 [id number] TRIPP RENNER D[facility] [address] [place] [address] 06/22/2024 14:52:12 07/04/2024 11:44:44 Postoperative pain 247708242 G89.18 b/l plantar fasciectom y DOS: 06/15/24 Tinea pedis 9929997 B35. 3 noted resolved at today's visit Onychomycosis 019118564 B35.1 Pain in right foot 71785 79812 42616 M79.671 Pain in left foot 333154 2853 40463 M79.672 Pain of le ft ankle joint 1068505150 9253029 M25.572 Localized edema 13931567 4 R60.0 Acquired s hort left Achilles tendon 7945474081 37375 M67.02 The patient was educated regarding how to mechanical ly stabilize their deformity. The patient was given education about shoe recommenda tions specific for the condition. The patient was educated about custom orthotics and how appropriat e shoes and orthotics can prevent further worsening of the deformity. The patient was educated about how bad shoe habits can worsen the condition. NSAIDS, P.T., injections and other conservati ve treatments were discussed. Both surgical and non surgical treatments were discussed, but conservati ve options were emphasized . Contractur e of right Achilles tendon 0153630250 5599761 M67.01 The patient was educated regarding how to mechanical ly stabilize their deformity. The patient was given education about shoe recommenda tions specific for the condition. The patient was educated about custom orthotics and how appropriat e shoes and orthotics can prevent further worsening of the deformity. The patient was educated about how bad shoe habits can worsen the condition. NSAIDS, P.T., injections and other conservati ve treatments were discussed. Both surgical and non surgical treatments were discussed, but conservati ve options were emphasized . [id number] [facility]IPP [facility] [address] [place] [address] 06/30/2024 14:14:53 07/04/2024 14:34:04 Cellulitis of left foot 6017290873 1159231 L03.116 The area of erythema was evaluated and it should be noted that antibiotic s were discussed and a close evaluation was performed to assess the need for oral antibiotic s. Due to the non-ascend ing nature and local presentati on of the erythema oral antibiotic s were ordered at this time. Plantar fa scial fibromatosis 19183181 M72.2 s/p b/l plantar fasciectom y 06/15/24 Postoperative pain 45295 9007 G89.18 b/l plantar fasciectom y DOS: 06/15/24 Onychomycosis 728868700 B35.1 Pain in right foot 36227 89764 61109 M79.671 Pain in left foot 689051 2805 32721 M79.672 Pain of le ft ankle joint 5254291892 9758477 M25.572 Localized edema 27719423 4 R60.0 Acquired s hort left Achilles tendon 2517409403 17937 M67.02 The patient was educated regarding how to mechanical ly stabilize their deformity. The patient was given education about shoe recommenda tions specific for the condition. The patient was educated about custom orthotics and how appropriat e shoes and orthotics can prevent further worsening of the deformity. The patient was educated about how bad shoe habits can worsen the condition. NSAIDS, P.T., injections and other conservati ve treatments were discussed. Both surgical and non surgical treatments were discussed, but conservati ve options were emphasized . Contractur e of right Achilles tendon 6878625708 8757692 M67.01 The patient was educated regarding how to mechanical ly stabilize their deformity. The patient was given education about shoe recommenda tions specific for the condition. The patient was educated about custom orthotics and how appropriat e shoes and orthotics can prevent further worsening of the deformity. The patient was educated about how bad shoe habits can worsen the condition. NSAIDS, P.T., injections and other conservati ve treatments were discussed. Both surgical and non surgical treatments were discussed, but conservati ve options were emphasized . Ulcer of heel 674251797 L97.526 [id number] MD Janett Camacho (Adult Med) [address] [place] [address] 07/18/2024 15:30:33 07/18/2024 16:53:08 Obesity 355085896 E66.9 Abdominal pain 81186344 R10.9 Abnormal weight loss 267 771342 R63.4 Hyperlipidemia 16405006 E78.5 Nausea 353771214 R11.0 [id number] Abhishek Glez MD [facility] [address] [place] [address] 09/07/2024 15:33:51 09/15/2024 11:36:05 Dyspnea on exertion 89275110 R06.09 Statin not tolerated 413 099291 Z78.9 Familial hypercholesterolemia 289151467 E78.01 Chest pain 92371755 R07. 9 [id number] MD Janett Camacho (Adult Med) [address] [place] [address] 10/24/2024 15:13:22 10/24/2024 15:59:56 Body mass index 25-29 - overweight 957934119 Z68.29 Overweight 461661678 E66 .3 Abdominal pain 90815251 R10.9 Hyperlipidemia 38807895 E78.5 Health Concerns Section Related Observation LastModified by Organization Detai ls LastModified Time None Recorded Concern Status LastModified by Organization Details LastModified Time None Recorded Advance Directives Directive N: Payers Encounter Date Sequence Insurance Name Policy Number Policy Hopper Covered Member ID Hopper Member ID Guarantor Name 06/22/2024 1 [facility] - DOS ON OR AFTER 21 (MEDICAID REPLACEMENT - HMO) Kelsi Dugan [id number] Kelsi Dugan 06/30/2024 1 [facility] - DOS ON OR AFTER 21 (MEDICAID REPLACEMENT - HMO) Kelsi Dugan [id number] Kelsi Dugan 07/18/2024 1 [facility] - DOS ON OR AFTER 21 (MEDICAID REPLACEMENT - HMO) Kelsi Dugan [id number] Kelsi Dugan 09/07/2024 1 [facility] - DOS ON OR AFTER 21 (MEDICAID REPLACEMENT - HMO) Kelsi Dugan [id number] Kelsi Dugan 10/24/2024 1 [facility] - [facility] ON OR AFTER 04/03/21 (MEDICAID REPLACEMENT - HMO) Kelsi Dugan [id number] Kelsi Dugan Notes Date Note Type Note Provider Name and Address Organization Details Recorded Time 06/22/2024 text/html patient presents s/p b/l plantar fasciectomy DOS: 06/15/24. Patient reports pain graded 6/10 greatest when walking and relieved by rest. patient states leaving the surgical dressings clean dry and intact as directed. Denies nausea, vomiting, fever, chills, shortness of breath, chest pain, difficulty breathing, calf pain. Agueda RENNER DPM [address] [place], [address], [facility] 07/02/2024 08:28:06 06/30/2024 text/html patient presents s/p b/l plantar fasciectomy DOS: 06/15/24. Patient reports pain graded 5/10 greatest when walking and relieved by rest. patient states leaving the surgical dressings clean dry and intact as directed. Denies nausea, vomiting, fever, chills, shortness of breath, chest pain, difficulty breathing, calf pain. Agueda RENNER DPM [address] [place], [address], [facility] 07/02/2024 08:35:20 07/18/2024 text/html abdominal pain w ith 18 lb weight loss and nausea no melena no hematochezia no hematemesis. Pain sometimes his epigastric sometimes it is lower quadrant. Hyperlipidemia she needs to have blood work checked she has been working through bad plantar fasciitis as well and she had an endometrial biopsy that did not reveal any cancer for some dysfunctional uterine bleeding Josefa Mehta MD Attn: Accounting[address] [facility], [place], [address], [facility] 07/18/2024 23:13:33 09/07/2024 text/html I had the pleasu re of seeing Ms. Dugan in consultation from Dr. Mehta for recommendations regarding evaluation and management of familial hypercholesterolemia. Pleasant 53-year-old with hypercholesterolemia and statin intolerance. Recently initiated on to classes of statins which she was unable to tolerate due to myalgias which were lifestyle limiting. Recently hospitalized at [facility] with chest pain and dyspnea with unremarkable echocardiogram per her account but has not had stress testing. Reports activity limitations due to bilateral knee pain as well as recent foot surgery. No recurrence of chest pain. Reports abdominal pain with plans for endoscopic evaluation per GI. Denies palpitations, presyncope or syncope. Reports optimal blood pressure. No history of prior coronary events. No family history of CAD or known hypercholesterolemia. Labs:07/18/2024-total cholesterol 202, HDL 48, LDL 227, triglycerides 146, BUN 11, creatinine 1.02, AST 26, ALT 20, glucose 88, sodium 141, potassium 4.4 Cardiac diagnostics:12 lead EKG 04/21/2024: Sinus rhythm first-degree AV block Abhishek Glez MD Attn: Accounting[address] [facility], [place], [address], [facility] 09/07/2024 16:12:15 10/24/2024 text/html she is dealing w ith GI still with regards to some of her colon discomfort she is taking the Repatha for her cholesterol with improvement in lipid status she is still losing some weight Josefa Mehta MD Attn: Accounting[address] [facility], [place], [address], [facility] 10/29/2024 18:28:20 OBGyn Episode Ob Episode Information Episode Created Date Number of Fetuses Patient Bloodtype Patient rh Status Prepregnancy Weight lbs Domestic Partner Domestic Partner Phone Father Name Immigration Paralegal Status 03/16/20 16 1 CLOSED Fetus Data First Name Last Name Admitted to NICU Weight (g) Sex Living Outcome Pediatric Complications Fetus ID Race Codes Race Delivery Type 3401.94 F Full Term [id number] Idonicio Calculation Initial Dionicio Date Initial Exam Date Initial Exam Provider Initial Ultrasound Date Last Menstrual Period Date Ultra Sound Weeks Gestation 0 Eighteen To Twenty Week Dionicio Update Ultra Sound Date Fundal Height At Umbil Quickening Date Ultra Sound Latest Weeks Gestation Final Dionicio Confirmed By Final Dionicio Confirmed Date Final Dionicio Date Ultra Sound Latest Days Gestation 0 0 Menstrual History Last Menstrual Date Menses Monthly On Bcp Conception Prior Menses Frequency Hcg Plus Date Menarche Onset Age Delivery Information Delivery Date Delivery Type Labor Anesthesia Weeks Gestation Incision Type Labor Labor Length Hrs Delivered By Post Complications Tubal Sterilization Discharge Date Comments 1 Regional-Sp inal 40 false Discharge Information Feeding Method Contraceptive Method Maternal HG B and HCT Levels Ob Episode Information Episode Created Date Number of Fetuses Patient Bloodtype Patient rh Status Prepregnancy Weight lbs Domestic Partner Domestic Partner Phone Father Name Immigration Paralegal Status 03/16/20 16 1 CLOSED Fetus Data First Name Last Name Admitted to NICU Weight (g) Sex Living Outcome Pediatric Complications Fetus ID Race Codes Race Delivery Type 4025.62 9 M Full Term 15576 Dionicio Calculation Initial Dionicio Date Initial Exam Date Initial Exam Provider Initial Ultrasound Date Last Menstrual Period Date Ultra Sound Weeks Gestation 0 Eighteen To Twenty Week Dionicio Update Ultra Sound Date Fundal Height At Umbil Quickening Date Ultra Sound Latest Weeks Gestation Final Dionicio Confirmed By Final Dionicio Confirmed Date Final Dionicio Date Ultra Sound Latest Days Gestation 0 0 Menstrual History Last Menstrual Date Menses Monthly On Bcp Conception Prior Menses Frequency Hcg Plus Date Menarche Onset Age Delivery Information Delivery Date Delivery Type Labor Anesthesia Weeks Gestation Incision Type Labor Labor Length Hrs Delivered By Post Complications Tubal Sterilization Discharge Date Comments 8 Regional-Sp inal 40 false Discharge Information Feeding Method Contraceptive Method Maternal HG B and HCT Levels
--- OUTSIDE RECORDS SUMMARY | 2025-01-09 00:14 | XMS_ITS | CONTINUITY OF CARE DOCUMENT ---
Author Name [email or web address] Address Unknown Organization [facility] Office Address [address] [place] [address] [address] [place] [address] Phone [phone] Care Team Providers Care Child Adolescent Psychiatrist Name Role Phone Karly Cabrera MD Unavailable [phone] Karly Cabrera MD Unavailable [phone] INSURANCE PROVIDERS Payer name Policy type / Coverage type Garrick red libertarian ID MAZIN COMPLETE (2) Medicare [id number]
--- OUTSIDE RECORDS SUMMARY | 2025-01-09 00:14 | XMS_ITS | Clinical Summary ---
Author Organization [facility] to be Address [address] [place] [address] Care Team Providers Care Residential Advisor Name Role Phone Dahlia Jiménez MD Primary Care Provider [phone] Source Comments [facility] to be,non-owned Affiliates and Associated Physician Practices is amultiple site organization consisting of ambulatory clinics and hospital sitesin [place], [place], [place] and [place]. This disclosure is being madepursuant to the Care Everywhere program and may not contain all information available regarding this patient. Last updated 18.[facility] to be Allergies Active Allergy Reactions Criticality Noted Date Comments Hydrocodone Itching 12/22/2018 Penicillins GI Discomfort 09/13/2017 Penicillins 11/11/2017 Medications * Be aware that medications may not be up to date on this document. Alwaysverify current medications with the patient. Medication Sig Dispensed Refills Start Date End Date Status Omeprazole (PRILOSEC PO) Take 1 tablet by mouth once daily Active OXYBUTYNIN CHLORIDE PO Take 2 tablets by mouth at bedtime Active GABAPENTIN, ONCE-DAILY, PO Take 1 tablet by mouth once daily Active Ibuprofen-Diphenhydra mine Cit (ADVIL PM PO) Active Doxylamine Succinate, Sleep, (UNISOM PO) Take 1 tablet by mouth at bedtime Active mometasone (ELOCON) 0.1 % ointment Apply to to left shoulder once daily for two weeks, then every other day as needed. 30 days supply. 45 g 2 12/05/2020 Active fluocinolone (DERMOTIC) 0.01 % otic oil Instill 3 (three) drops into both ears 2 times daily 20 mL 2 12/05/2020 Active mupirocin (BACTROBAN) 2 % ointment Apply to affected area On abdomen twice daily til wound is healed. 30 g 2 12/05/2020 Active Active Problems Problem Noted Date Diagnosed Date Melanocytic nevi of trunk 05/10/2023 History of staph infection 05/10/2023 Neoplasm of uncertain behavior of skin Assessment & Plan (12/05/2020 11:31 PM EDITORIAL INTERN): Left abdomen DDx: BCC vs. Inflamed hair follicle vs. Inflamed molluscum Counseled pt on possible Dx and management options. Discussed benefit and risks of shave biopsy (including bleeding, infection, and possible scarring). Pt would like to proceed. Shave Biopsy x 1 performed. Pt tolerated well. Post-procedure instructions given. Please see procedure note. Rash and other nonspecific skin eruption 021 Assessment & Plan (12/05/2020 11:38 PM EDITORIAL INTERN): Impetigo vs. 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 Assessment & Plan (12/05/2020 11:34 PM EDITORIAL INTERN): Poorly controlled Clean razor w/ alcohol prior to shaving Start OTC BPO qd AA Other seborrheic dermatitis 12/05/2020 Assessment & Plan (12/05/2020 11:32 PM EDITORIAL INTERN): Poorly controlled Start Lidex ointment BID PRN ears History of nonmelanoma skin cancer 12/22/2018 Assessment & Plan (12/05/2020 11:34 PM EDITORIAL INTERN): -No evidence of recurrence pending biopsy result -Sun protection behaviors advised Dermatofibroma of left thigh 12/22/2018 Solar lentiginosis 12/22/2018 Scar of thigh 12/22/2018 Squamous cell carcinoma in s itu (SCCIS) of skin of left lower leg 06/02/2018 Healing wound 06/02/2018 History of basal cell carcinoma 05/26/2018 Assessment & Plan (12/05/2020 11:35 PM EDITORIAL INTERN): -No evidence of recurrence -Sun protection behaviors advised Rosacea 05/26/2018 Actinic keratosis 05/26/2018 Assessment & Plan (12/05/2020 11:35 PM EDITORIAL INTERN): Bilateral cheeks Counseled patient on diagnosis, a/w sun exposure, pre-malignant nature w/ possible progression to SCC, and Tx options. Advised pt on importance of daily sun protection (SPF 30+, UVA/UVB) and monthly self skin exams. Discussed benefit, risks of LN2. Pt wish to proceed. LN2 applied to 4 lesions. See associated procedure note. Pt tolerated Tx well. Post-procedural blister and wound care instructions given. Eczema 05/26/2018 Immunizations Name Administration Dates Next Due INFLUENZA VACCINE 10/07/2020,09/23/2018 MMR 02/21/2018 TDAP (7yrs+) 02/21/2018 Family History Medical History Relation Name Comments None Known Brother Cancer - Skin, Melanoma Father None Known Maternal Aunt None Known Maternal Grandfather None Known Maternal Grandmother None Known Maternal Uncle None Known Mother None Known Other None Known Paternal Aunt None Known Paternal Grandfather None Known Paternal Grandmother None Known Paternal Uncle Cancer - Skin, Melanoma Sister Asthma Neg Hx CVA Neg Hx Cancer - Breast Neg Hx Cancer - Other Neg Hx Cancer - Skin, Non Melanoma Neg Hx Eczema Neg Hx Hemophilia Neg Hx Psoriasis Neg Hx Relation Name Status Comments Brother Father Maternal Aunt Maternal Grandfather Maternal Grandmother Maternal Uncle Mother Other Paternal Aunt Paternal Grandfather Paternal Grandmother Paternal Uncle Sister Social History Tobacco Use Types Packs/Day Years Used Date Smoking Tobacco: Never Smokeless Tobacco: Never Alcohol Use Standard Drinks/Week Comments No 0 (1 standard drink = 0.6 oz pur e alcohol) Sex and Gender Information Value Date Recorded Sex Assigned at Not on file Gender Identity Not on file Sexual Orientation Not on file Last Filed Vital Signs Vital Sign Reading Time Taken Comments Blood Pressure 120/68 09/13/2017 4:46 PM EDITORIAL INTERN Pulse 70 09/13/2017 4:46 PM EDITORIAL INTERN Temperature 36.4 C (97.6 F) 09/13/2017 4:46 PM EDITORIAL INTERN Respiratory Rate 16 09/13/2017 4:46 PM EDITORIAL INTERN Oxygen Saturation 98% 09/13/2017 4:46 PM EDITORIAL INTERN Inhaled Oxygen Concentration - - Weight 74.8 kg (165 lb) 09/13/2017 4:46 PM EDITORIAL INTERN Height 154.9 cm (5' 1 ) 09/13/2017 4:46 PM EDITORIAL INTERN Body Mass Index 31.18 09/13/2017 4:46 PM EDITORIAL INTERN Plan of Treatment Health Maintenance Due Date Last Done Comments COLOGUARD (AGES 45-75) - COL ON CA SCREENING 1968 COLON MONITORING 1968 COLONOSCOPY - COLON CA SCREENING 1968 CT COLONOGRAPHY - COLON CA SCREENING 1968 Colorectal Cancer Screening 1968 FIT - COLON CA SCREENING 1968 FLEX SIG - COLON CA SCREENING 1968 LIPID TESTING 1968 MAMMOGRAM 1968 PAP SMEAR 1968 HIV SCREENING 12/25/1983 HEPATITIS C SCREENING 12/20/1986 HEPATITIS B VACCINE (1 of 3 - 19+ 3-dose series) 12/25/1987 PNEUMOCOCCAL VACCINE 50+ (1 of 1 - PCV) 2018 ZOSTER VACCINE (1 of 2) 2018 COVID-19 VACCINE ( - 2023-2 5 season) 2024 DEPRESSION SCREENING 10/04/2024 INFLUENZA VACCINE (Season Ended) 2025 10/07/2020, 09/23/2018 DTAP/TDAP/TD VACCINES (2 - T d or Tdap) 02/22/2028 02/21/2018 HIB VACCINE Aged Out No longer eligi ble based on patient's age to complete this topic HPV VACCINE Aged Out No longer eligi ble based on patient's age to complete this topic MENINGOCOCCAL (Group B) VACCINE SHARED DECISION-MAKING Aged Out No longer eligible based on patient's age to complete this topic MENINGOCOCCAL GROUPS A/C/Y/W VACCINE Aged Out No longer eligible b ased on patient's age to complete this topic PNEUMOCOCCAL VACCINE Aged Out No long er eligible based on patient's age to complete this topic Care Teams Residential Advisor Relationship Specialty Start Date End Date Dahlia Jiménez MD [address] [place] [id number] PCP - General Internal Medicine 09/13/17
--- OUTSIDE RECORDS SUMMARY | 2025-01-09 00:14 | XMS_ITS | Referral Summary ---
Author Organization [facility] Address [address] [place] [address] Care Team Providers Care Event Representative Name Role Phone Shailesh Nieto MD Unavailable [phone] Marin Mehta MD Primary Care Provider [phone] Encounters Date Type Department Care Team Description 12/27/2024 2:16 PM CDT - 12/27/2024 11:59 PM CDT Hospital Encounter [facility] [address] [place], [place] [id number] Chest pain, unspecified type Discharge Disposition: Discharge to home or self care from Last 3 Months Allergies Active Allergy Reactions Criticality Noted Date Comments Hydrocodone Rash Medium 10/05/2023 Penicillin Rash Medium 10/05/2023 Medications gabapentin (NEURONTIN) 300 mg capsule Take 1 capsule (300 mg total) by mouth 2 (two) times a day Active oxyBUTYnin XL (DITROPAN-XL) 10 mg 24 hr tablet Take 2 tablets (20 mg total) by mouth daily Active melatonin 10 mg tablet Take 2 tablets (20 mg total) by mouth daily Active ibuprofen (ADVIL,MOTRIN) 600 mg tablet Take 1 tablet (600 mg total) by mouth every 6 (six) hours as needed for pain 30 tablet 10/28/2023 Active Active Problems Problem Noted Date Diagnosed Date Postmenopausal bleeding 10/05/2023 Social History Tobacco Use Types Packs/Day Years Used Date Smoking Tobacco: Never Passive Smoke Exposure: Never Smokeless Tobacco: Never AUDIT-C Answer Date Recorded Frequency of Alcohol Consumption Not on file 10/13/2023 Q2: How many drinks containi ng alcohol do you have on a typical day when you are drinking? Patient does not drink Frequency of Binge Drinking Not on file 10/04 Personal Safety Answer Date Recorded Have you ever been in or are you currently in a harmful physical or emotional relationship or is someone making you feel afraid or unsafe? Denies 10/28/2023 Comments No Sex and Gender Information Value Date Recorded Sex Assigned at Not on file Legal Sex Female 1:26 PM CORPORATE HUMAN RESOURCES MANAGER Gender Identity Not on file Sexual Orientation Not on file Last Filed Vital Signs Vital Sign Reading Time Taken Comments Blood Pressure 152/82 12/27/2024 2:35 PM CDT Pulse 71 12/27/2024 2:35 PM CDT Temperature 36.1 C (97 F) 10/28/2023 3:50 PM CORPORATE HUMAN RESOURCES MANAGER Respiratory Rate 20 10/28/2023 4:20 PM CORPORATE HUMAN RESOURCES MANAGER Oxygen Saturation 94% 10/28/2023 4:20 PM CORPORATE HUMAN RESOURCES MANAGER Inhaled Oxygen Concentration - - Weight 78.8 kg (173 lb 11.6 oz) 024 12:07 PM CORPORATE HUMAN RESOURCES MANAGER Height 154.9 cm (5' 1 ) 10/28/2023 12:0 7 PM CORPORATE HUMAN RESOURCES MANAGER Body Mass Index 32.82 10/28/2023 12:07 PM CORPORATE HUMAN RESOURCES MANAGER Plan of Treatment Not on file Procedures Procedure Name Priority Date/Time Associated Diagnosis Comments CT HEART MORPHOLOGY AND CORONARY ARTERIES W CONTRAST Schedule Routine, Read Routine (OP Routine) 12/27/2024 3:05 PM CDT Chest pain, unspecified type POCT CREATININE - DEVICE Routine 12/27/2024 2:36 PM CDT from Last 3 Months Results * CTA Heart and Coronary Arteries W Morphology when Performed (12/27/2024 3:05 PM CDT) Anatomical Region Laterality Modality Chest N/A Computed Tomogra phy 12/27/2024 3:18 PM CDT Impressions 12/27/2024 3:23 PM CDT 1. Normal coronary CTA. No anomalous coronary artery, dissection, or coronary artery disease. 2. Calcium score is 0. Dictated by: Ranjith Moore M.D. The radiology attending physician has personally reviewed this study, and had reviewed and/or edited this written report and agrees with it. Electronically signed by: Fazal Valencia M.D. Narrative 12/27/2024 3:23 PM CDT EXAMINATION: CORONARY CT ANGIOGRAM HISTORY: Chest pain/anginal equivalent. Intermediate CAD risk. TECHNIQUE: CT angiography of the coronary arteries was performed after the administration of 95 mL of Optiray 350. Images were also obtained precontrast for the purposes of calcium scoring. Prior to the examination, 10 mg of metoprolol was administered intravenously and 0.8 mg nitroglycerin was administered sublingually. The patient's heart rate at the time of the examination was 75 beats per minute. Images were transferred to a 3D workstation for additional post-processing. FINDINGS: The coronary arteries are right system dominant. There is no anomalous coronary origin or course. No focal caliber change or irregularity to suggest coronary artery dissection. Right coronary system: No significant calcified or noncalcified atherosclerotic disease. Left coronary system: No significant calcified or noncalcified atherosclerotic disease. The calculated calcium score is 0. Other findings: Mild bibasilar atelectasis. Small hiatal hernia. Procedure Note Fazal Valencia MD - 12/27/2024 EXAMINATION: CORONARY CT ANGIOGRAM HISTORY: Chest pain/anginal equivalent. Intermediate CAD risk. TECHNIQUE: CT angiography of the coronary arteries was performed after the administration of 95 mL of Optiray 350. Images were also obtained precontrast for the purposes of calcium scoring. Prior to the examination, 10 mg of metoprolol was administered intravenously and 0.8 mg nitroglycerin was administered sublingually. The patient's heart rate at the time of the examination was 75 beats per minute. Images were transferred to a 3D workstation for additional post-processing. FINDINGS: The coronary arteries are right system dominant. There is no anomalous coronary origin or course. No focal caliber change or irregularity to suggest coronary artery dissection. Right coronary system: No significant calcified or noncalcified atherosclerotic disease. Left coronary system: No significant calcified or noncalcified atherosclerotic disease. The calculated calcium score is 0. Other findings: Mild bibasilar atelectasis. Small hiatal hernia. IMPRESSION: 1. Normal coronary CTA. No anomalous coronary artery, dissection, or coronary artery disease. 2. Calcium score is 0. Dictated by: Ranjith Moore M.D. The radiology attending physician has personally reviewed this study, and had reviewed and/or edited this written report and agrees with it. Electronically signed by: Fazal Valencia M.D. Abhishek Glez MD IMG CT PROCEDURES Final Result * POCT creatinine (12/27/2024 2:36 PM CDT) Creatinine POC 0.8 0.6 - 1.1 mg/dL Blood 12/27/2024 2:36 PM CDT 12/27/2024 2:36 PM CDT Abhishek Glez MD LAB POCT ORDERABLES - DEVICE Fin al Result Performing Organization Address City/State/[facility] Co la Phone Number [facility] Department [place] [address] from Last 3 Months Insurance [facility] Care Teams Event Representative Relationship Specialty Start Date End Date Marin Mehta MD [address] [place] [address] PCP - General Internal Medicine 11/14/24 Shailesh Nieto MD [address] [place] [address] [address] [place] [address] Meat Cutting Teacher Obstetrics and Gynecology 10/28/23
--- OUTSIDE RECORDS SUMMARY | 2025-01-09 00:14 | XMS_ITS | Encounter Summary ---
Author Organization [facility] Address [address] [place] [address] Care Team Providers Care Education And Training Manager Name Role Phone Dahlia Jiménez MD Primary Care Provider [phone] Reason for Visit * Reason Onset Date Comments Medication Information 10/27/2018 Encounter Details Date Type Department Care Team (Late st Contact Info) Description 10/27/2018 Telephone [facility] [place] [phone] Scanned, Documents Medication Information Social History Tobacco Use Types Packs/Day Years [...] file Not on file Not on file documented as of this encounter Progress Notes * Lena Erazo RN - 10/27/2018 10:40 AM CST Patient's brother Sandoval Cohen was here and was given a new prescription for Kelsi Dugan RVISOR GLYCERIN * Sally Jaquez MA - 10/27/2018 9:54 AM CST [facility] CALLED REGARDING PATIENTS OXYCODONE 5-325. THEY ARE NEEDING THE QUANTITY AMOUNT. RVISOR GLYCERIN documented in this encounter Plan of Treatment Not on file documented as of this encounter Visit Diagnoses Not on filedocumented in this encounter Care Teams Education And Training Manager Relationship Specialty Start Date End Date Dahlia Jiménez MD [address] [place] [address] PCP - General INTERNAL MEDICINE 08/31/17 documented as of this encounter
--- OUTSIDE RECORDS SUMMARY | 2025-01-09 00:14 | XMS_ITS | Clinical Summary ---
Author Organization [facility] Address [address] [place] [address] Care Team Providers Care Electrician Office Name Role Phone Shailesh Nieto MD Unavailable + [phone] Marin Mehta MD Primary Care Provider [phone] Allergies Active Allergy Reactions Criticality Noted Date [...] Noted Date Diagnosed Date Postmenopausal bleeding 10/05/2023 Encounters Date Type Department Care Team Description 12/27/2024 2:16 PM CDT - 12/27/2024 11:59 PM CDT Hospital Encounter [facility] [address] [place] [id number] Chest pain, unspecified type Discharge Disposition: Discharge to home or self care from Last 3 Months Surgical History Surgery Date Site/Laterality Comments SECTION 2 APPENDECTOMY CHOLECYSTECTOMY JOINT REPLACEMENT Bilateral COSMETIC SURGERY abdomen SKIN CANCER EXCISION TUBAL LIGATION Medical History Medical History Date Comments GERD (gastroesophageal reflux disease) PONV (postoperative nausea and vomiting) Family History Medical History Relation Name Comments Ovarian cancer Maternal Grandmother Rectal cancer Mother Relation Name Status Comments Maternal Grandmother Mother Social History Tobacco Use Types Packs/Day [...] on file Legal Sex Female 1:26 PM LOGGING TRACTOR OPERATOR Gender Identity Not on file Sexual Orientation Not on file Obstetrics History Last Filed Vital Signs Vital Sign Reading Time Taken Comments Blood Pressure 152/82 12/27/2024 2:35 PM CDT Pulse 71 12/27/2024 2:35 PM CDT Temperature 36.1 C (97 F) 10/28/2023 3:50 PM LOGGING TRACTOR OPERATOR Respiratory Rate 20 10/28/2023 4:20 PM LOGGING TRACTOR OPERATOR Oxygen Saturation 94% 10/28/2023 4:20 PM LOGGING TRACTOR OPERATOR Inhaled Oxygen Concentration - - Weight 78.8 kg (173 lb 11.6 oz) 024 12:07 PM LOGGING TRACTOR OPERATOR Height 154.9 cm (5' 1 ) 10/28/2023 12:0 7 PM LOGGING TRACTOR OPERATOR Body Mass Index 32.82 10/28/2023 12:07 PM LOGGING TRACTOR OPERATOR Plan of Treatment Health Maintenance Due Date Last Done Comments Breast Cancer Screening-Mammogram 1968 Cervical Cancer Screening 1968 Colon Cancer Screening-Colonoscopy 1968 Depression Screening 1968 Hepatitis C Screening 1968 Hepatitis B Screening 1986 Regular Well Visit/Exam 18-64 1986 Zoster Vaccine (1 of 2) 2018 Influenza Vaccine (#1) 2024 1, 10/07/2020, 07/06/2020, Additional history exists DTaP/Tdap/Td Vaccine (2 - Td or Tdap) 02/22/2028 02/21/2018 Pneumococcal vaccine <65 Aged Out No longer eligible based on patient's age to complete this topic Procedures Procedure Name Priority Date/Time Associated Diagnosis [...] bibasilar atelectasis. Small hiatal hernia. Procedure Note Erik, Fazal, MD - 12/27/2024 EXAMINATION: CORONARY CT ANGIOGRAM [...] it. Electronically signed by: Fazal Valencia M.D. us Abhishek Glez MD IMG CT PROCEDURES Final Result * POCT creatinine (12/27/2024 2:36 PM CDT) Creatinine POC 0.8 0.6 - 1.1 mg/dL Blood 12/27/2024 2:36 PM CDT 12/27/2024 2:36 PM CDT us Abhishek Glez MD LAB POCT ORDERABLES - DEVICE Fin al Result [facility] Department [place] [address] from Last 3 Months Insurance [facility] Care Teams Electrician Office Relationship Specialty Start Date End Date Marin Mehta MD [address] [place] [address] PCP - General Internal Medicine 11/14/24 Shailesh Nieto MD [address] [place] [address] [place] [address] Cardiac Rehab Nurse Obstetrics and Gynecology 10/28/23
[2025-01-09 12:18] VITALS: BP 160/73; PULSE 63; RESP 18; TEMP 36.6; O2SAT 100; BMI 29.8
[2025-01-09] MEDS: LACTATED RINGERS 1,000 ML 150 ML IV CONT (12:44)
--- NOTE | 2025-01-09 12:52 | WPDANESEPPF ---
Anes - Initial Pre Proc Eval Procedure: Operation Date: 01/09/25 13:30 Proposed Procedures p Esophagogastroduodenoscopy - Sergey Mack MD Date/Time: 01/09/25 12:52 Surgeon: Sergey Mack MD Pre Op Diagnosis: abn weight loss, nausea w/ vomiting, early satiety Patient Data Age: 54 Gender: F Height: 1.55 m Weight: 71.7 kg Last Vital Signs Temp 36.6 C 01/09/25 12:18 Pulse 63 01/09/25 12:18 Resp 18 01/09/25 12:18 BP 160/73 H 01/09/25 12:18 Pulse Ox 100 01/09/25 12:18 O2 Del Method Room Air 01/09/25 12:18 Allergies Allergy/AdvReac Type Severity Reaction Status Date / Time hydrocodone Allergy Severe Itching Verified 01/09/25 12:31 Penicillins AdvReac Intermediate Vomiting Verified 01/09/25 12:31 Home Medications ?Medication ?Instructions ?Recorded ?Confirmed ?Type gabapentin 300 mg capsule 300 mg PO DAILY 06/20/20 01/09/25 History oxybutynin chloride 5 mg tablet 10 mg PO HS 06/20/20 01/09/25 History melatonin 10 mg tablet 20 mg PO HS 07/18/20 01/09/25 History oxycodone-acetaminophen 5 mg-325 1 tablet PO Q6H PRN pain #10 tabs 11/29/23 01/05/25 Rx mg tablet ondansetron 4 mg disintegrating 4 mg PO Q8H #30 tabs 08/28/24 01/09/25 Rx tablet evolocumab 140 mg/mL subcutaneous 140 mg subcut ONCE 10/27/24 01/09/25 History syringe (Repatha Syringe) omeprazole 40 mg capsule,delayed 40 mg PO DAILY #30 caps 10/27/24 01/09/25 Rx release linaclotide 145 mcg capsule 145 mcg Capsule#2 Samples 10/30/24 01/05/25 Sample (Linzess) linaclotide 72 mcg capsule 72 mcg PO DAILY #30 caps 11/13/24 11/13/24 Rx (Linzess) Patient hx anesthesia problems: post op nausea/vomiting Family hx anesthesia problems: none Results Review: All pre-operative results and documents have been reviewed as part of the pre-operative evaluation. [facility] Past Medical History Medical History Rectal bleeding Family history of colon cancer in mother Dyspepsia Nausea Alternating constipation and diarrhea Cancer of skin Surgical History Surgical History History of appendectomy Family History Family History Mother Carcinoma of colon Hypertension Diabetes mellitus Social History Social History Smoking status: Never smoker Alcohol intake: never Substance use: never Substance use type: does not use Living arrangements: alone Spiritual care concerns: No Anes - Eval Final PreProcedure Day of Procedure 01/09/25 12:52 Patient weight: overweight Heart: regular rate and rhythm Lungs: decreased breath sounds Airway: Mallampati scale class II Neurological: alert and oriented Last oral intake: >/= 8 hours ASA classification: III Emergent: no Anesthetic plan: proceed Anesthesia type and monitoring: general GIVS and standard monitoring Results Review: All pre-operative results and documents have been reviewed as part of the pre-operative evaluation. Informed Consent: The patient's anesthetic plan and its attendant risks and benefits were discussed with the patient/family/POA. Questions were solicited and answers provided to the satisfaction of the patient/family/POA.
--- NOTE | 2025-01-09 13:04 | PM.IMHP ---
H&P: HPI History of Present Illness Date/Time: 01/09/25 13:04 Chief Complaint: Nausea-GERD Narrative: the patient has been evaluated in our service for refractory nausea, and occasional GERD which is partially controlled with omeprazole. She underwent an EGD in 2019, which was unremarkable. Review of Systems Review of Systems: All systems reviewed & are unremarkable except as noted in HPI and below PMFSH Past Medical History Medical History Rectal bleeding Family history of colon cancer in mother Dyspepsia Nausea Alternating constipation and diarrhea Cancer of skin Surgical History Surgical History History of appendectomy Family History Family History Mother Carcinoma of colon Hypertension Diabetes mellitus Social History Social History Smoking status: Never smoker Alcohol intake: never Substance use: never Substance use type: does not use Living arrangements: alone Spiritual care concerns: No Meds Home Medications and Allergies Home Medications ?Medication ?Instructions ?Recorded ?Confirmed ?Type gabapentin 300 mg capsule 300 mg PO DAILY 06/20/20 01/09/25 History oxybutynin chloride 5 mg tablet 10 mg PO HS 06/20/20 01/09/25 History melatonin 10 mg tablet 20 mg PO HS 07/18/20 01/09/25 History oxycodone-acetaminophen 5 mg-325 1 tablet PO Q6H PRN pain #10 tabs 11/29/23 01/05/25 Rx mg tablet ondansetron 4 mg disintegrating 4 mg PO Q8H #30 tabs 08/28/24 01/09/25 Rx tablet evolocumab 140 mg/mL subcutaneous 140 mg subcut ONCE 10/27/24 01/09/25 History syringe (Repatha Syringe) omeprazole 40 mg capsule,delayed 40 mg PO DAILY #30 caps 10/27/24 01/09/25 Rx release linaclotide 145 mcg capsule 145 mcg Capsule#2 Samples 10/30/24 01/05/25 Sample (Linzess) linaclotide 72 mcg capsule 72 mcg PO DAILY #30 caps 11/13/24 11/13/24 Rx (Linzess) Allergies Allergy/AdvReac Type Severity Reaction Status Date / Time hydrocodone Allergy Severe Itching Verified 01/09/25 12:31 Penicillins AdvReac Intermediate Vomiting Verified 01/09/25 12:31 Vital Signs Vital Signs - 24 hr 01/09/25 12:18 Temperature 97.8 F Pulse Rate 63 Respiratory Rate 18 Blood Pressure 160/73 H Pulse Oximetry 100 Oxygen Delivery Room Air Exam Const: General: cooperative and healthy appearing Resp: Effort & Inspection: normal respiratory effort and able to speak in complete sentences Auscultation: clear to auscultation bilaterally Cardio: Rate: regular rate Rhythm: regular rhythm GI: Inspection: normal to inspection GI Palp: No No hepatosplenomegaly present Auscultation: normal bowel sounds Rectal Exam: deferred Skin: General skin exam: normal color Psych: Appearance: grossly normal Mental Status: mental status grossly normal Assessment and Plan Assessment and plan (1) Nausea: Code(s): R11.0 - Nausea Status: Acute Assessment and Plan: The patient is deemed a good candidate for the procedure. Consent signed. Will proceed.
[2025-01-09 13:26] VITALS: BP 110/60; PULSE 71; RESP 18; O2SAT 96
[2025-01-09 13:36] VITALS: BP 99/55; PULSE 66; RESP 16; O2SAT 99
[2025-01-09 13:46] VITALS: BP 117/63; PULSE 58; RESP 18; O2SAT 100
== END 2025-01-09 13:55 | disposition home or self-care (01) ==
PROVIDERS: PCP Internal Medicine; Referring Provider Nurse Practitioner Family; Visit Provider Internal Medicine Gastroenterology
PROC: 0DJ08ZZ Inspection of Upper Intestinal Tract, Via Natural or Artificial Opening Endoscopic (ICD-10-PCS; CPT 43239; principal; 2025-01-09 13:30)
DX: K29.50 Unspecified chronic gastritis without bleeding (principal); K21.9 Gastro-esophageal reflux disease without esophagitis; Z79.891 Long term (current) use of opiate analgesic; Z98.890 Other specified postprocedural states; Z85.828 Personal history of other malignant neoplasm of skin; Z80.0 Family history of malignant neoplasm of digestive organs
CPT/HCPCS: 43239; 88305; J2003; J2704; J7120